=== PATIENT | female | born 1945 | race Caucasian/White ===

== ENCOUNTER 2017-04-16 14:22 | Inpatient (IN) | payer OTHER ==
[2017-04-16] VITALS: BP 162/80
[~2017-04-16] VITALS: Ht 160 cm; Wt 89.4 kg
[~2017-04-16 14:22] MED LIST: AMLO10TA2 PO; AMLO5TAB2 PO; ASPI-496 PO; ASPI-621 PO; ATOR-2 PO; CARV6.252 PO; CYCL5TAB PO; HYDR-3240 PO; HYDR2TAB29 PO; LINA5TAB PO; LISI40TA PO; LISI5TAB7 PO; METF850T2 PO; METH10TA6 PO; OMEP-110 PO; PRAS10TA4 PO; SIMV40TA3 PO; flexeril PO
[2017-04-16] MEDS ORDERED: NITROGLYCERIN SINGLE TAB 0.4 MG SL ONE (16:20)
[2017-04-16] MEDS ORDERED: ASPIRIN 81 MG TABLET CHEW ONE (16:20)
[2017-04-16] MEDS ORDERED: ASPIRIN 81 MG TABLET CHEW PO ONE (16:30)
[2017-04-16] MEDS ORDERED: SODIUM CHLORIDE FLUSH 10ML SYR IVF ONE (16:30)
[2017-04-16] MEDS ORDERED: NITROGLYCERIN SINGLE TAB 0.4 MG SL PRN (16:30)
[2017-04-16 16:32] LABS: HEMATOCRIT 43.2 % (34.6-47.8); HEMOGLOBIN 14.1 g/dL (11.7-16.4); WHITE BLOOD COUNT 8.6 x10^3/uL (3.4-10)
[2017-04-16 16:45] LABS: BLOOD UREA NITROGEN 34 mg/dL (7-18)
[2017-04-16 16:51] LABS: ASPARTATE AMINO TRANSFERASE 33 U/L (15-37)
[2017-04-16 16:59] LABS: IS PT STATUS REG ER OR PRE ER? YES
[2017-04-16] MEDS ORDERED: NITROGLYCERIN OINT 2%, 1GM TP ONE ×2 (18:00→18:37)
[2017-04-16] MEDS ORDERED: POLYETHYLENE GLYCOL 17 GM PACKET PO PRN (18:00)
[2017-04-16] MEDS ORDERED: PROMETHAZINE 25 MG/ML, 1ML IM PRN (18:00)
[2017-04-16] MEDS ORDERED: HYDROcodone/APAP 5/325 TABLET PO PRN (18:00)
[2017-04-16] MEDS ORDERED: INSULIN ASPART 100 UNITS/ML, PEN SQ-INSULIN SCH (18:00)
[2017-04-16] MEDS ORDERED: DEXTROSE 4 GM TAB.CHEW PO PRN (18:00)
[2017-04-16] MEDS ORDERED: ACETAMINOPHEN 325 MG TABLET PO PRN (18:00)
[2017-04-16] MEDS ORDERED: ONDANSETRON 2MG/ML, 2ML IVPush PRN (18:00)
[2017-04-16] MEDS ORDERED: DEXTROSE 50%, 50ML SYRINGE IVPush PRN (18:00)
[2017-04-16] MEDS ORDERED: GLUCAGON 1 MG IM PRN (18:00)
[2017-04-16] MEDS ORDERED: METHOCARBAMOL 500 MG TABLET PO PRN (18:00)
[2017-04-16] MEDS ORDERED: BISACODYL 10 MG SUPP PR PRN (18:00)
[2017-04-16] MEDS ORDERED: ZOLPIDEM 5MG TABLET PO PRN (18:00)
[2017-04-16] MEDS ORDERED: DOCUSATE 100 MG CAPSULE PO PRN (18:00)
[2017-04-16] MEDS ORDERED: ENOXAPARIN 40 MG/0.4 ML SQ SCH (21:00)
[2017-04-16] MEDS: ATORVASTATIN 80 MG TABLET PO SCH (21:59)
[2017-04-16] MEDS: CARVEDILOL 6.25 MG TABLET PO SCH (22:38)
[2017-04-16] MEDS: NITROGLYCERIN 0.4 MG BOTTLE (25 TABS) SL PRN (22:39)
[2017-04-16] MEDS: SODIUM CHLORIDE 0.9% 1,000 ML IV SCH (23:08)
[2017-04-16] MEDS: SODIUM CHLORIDE FLUSH 10ML SYR IVF SCH ×2 (23:09)
[2017-04-16 23:29] LABS: IS PT STATUS REG ER OR PRE ER? NO
[2017-04-16 23:30] VITALS: BP 170/85
[2017-04-16] MEDS: PRASUGREL 10 MG TABLET PO SCH (23:39)
[2017-04-16 23:40] VITALS: BP 153/74
[2017-04-17] MEDS ORDERED: ATROPINE SYRINGE 0.1 MG/ML, 10ML ONE
[2017-04-17] MEDS ORDERED: HEPARIN 5,000 UNITS/ML, 1ML IV ONE (00:30)
[2017-04-17] MEDS ORDERED: HEPARIN 25,000 UNITS/500ML PMX 500 ML IV PRN (00:30)
[2017-04-17] MEDS ORDERED: HEPARIN 5,000 UNITS/ML, 1ML IV PRN (00:30)
[2017-04-17 00:41] VITALS: BP 204/96
[2017-04-17 01:03] VITALS: BP 179/89
[2017-04-17] MEDS: NITROGLYCERIN 0.4 MG BOTTLE (25 TABS) SL PRN (01:03)
[2017-04-17 01:17] VITALS: BP 149/82
[2017-04-17 02:05] LABS: PATH.CAST-FLAG NOT PRESENT; SPERM-FLAG NOT PRESENT; SRC-FLAG NOT PRESENT; XTAL-FLAG NOT PRESENT; YLC-FLAG NOT PRESENT
[2017-04-17] MEDS: hydrALAzine 20 MG/ML, 1ML IV PRN (04:49)
[2017-04-17] MEDS ORDERED: NITROGLYCERIN/D5W PMX 250 ML IV PRN (05:00)
[2017-04-17] MEDS: CARVEDILOL 6.25 MG TABLET PO SCH ×3 (05:49→21:27)
[2017-04-17 06:04] LABS: BLOOD UREA NITROGEN 29 mg/dL (7-18)
[2017-04-17 06:11] LABS: IS PT STATUS REG ER OR PRE ER? NO
[2017-04-17] MEDS: INSULIN ASPART 100 UNITS/ML, PEN SQ-INSULIN SCH ×4 (07:00→21:54)
[2017-04-17] MEDS ORDERED: PRASUGREL 10 MG TABLET PO SCH (09:00)
[2017-04-17] MEDS ORDERED: OMEPRAZOLE 20 MG CAPSULE.DR PO SCH (09:00)
[2017-04-17] MEDS: ASPIRIN 81 MG TABLET EC PO SCH (10:34)
[2017-04-17] MEDS: SODIUM CHLORIDE FLUSH 10ML SYR IVF SCH ×4 (10:35→21:53)
[2017-04-17] MEDS ORDERED: VERAPAMIL 2.5 MG/ML, 2ML ONE (12:49)
[2017-04-17] MEDS ORDERED: FENTANYL PF 100 MCG/2ML ONE (12:49)
[2017-04-17] MEDS ORDERED: MIDAZOLAM 1 MG/ML, 5ML ONE ×3 (12:49→17:03)
[2017-04-17] MEDS ORDERED: HEPARIN 1,000 UNITS/ML, 10ML ONE (12:50)
[2017-04-17] MEDS ORDERED: BIVALIRUDIN 250 MG ONE ×2 (12:50→15:22)
[2017-04-17] MEDS ORDERED: LIDOCAINE 2%, 20ML ONE (12:50)
[2017-04-17] MEDS: SODIUM CHLORIDE 0.9% 1,000 ML IV SCH (13:15)
[2017-04-17] MEDS ORDERED: PRASUGREL 10 MG TABLET ONE (14:57)
[2017-04-17] MEDS ORDERED: PHENYLEPHRINE 10 MG/ML ONE ×2 (15:07→15:40)
[2017-04-17] MEDS ORDERED: EPINEPHRINE 2 MG in SODIUM CHLORIDE 0.9% 248 ML IV PRN (15:30)
[2017-04-17] MEDS ORDERED: PROPOFOL 10 MG/ML, 100ML IV ONE (15:40)
[2017-04-17] MEDS ORDERED: VECURONIUM 10 MG ONE (15:40)
[2017-04-17] MEDS ORDERED: VASOPRESSIN 20 UNIT/ML, 1ML ONE (15:40)
[2017-04-17] MEDS ORDERED: DEXTROSE 5%, 250ML ONE (15:40)
[2017-04-17] MEDS ORDERED: CODE BLUE RESPONSE XX ONE (15:40)
[2017-04-17] MEDS ORDERED: CALCIUM CHLORIDE 13.6 MEQ/10 ML ONE (15:40)
[2017-04-17] MEDS ORDERED: SODIUM CHLORIDE 0.9%, 250ML ONE (15:40)
[2017-04-17] MEDS ORDERED: SODIUM BICARB 8.4%, 50ML SYRINGE ONE (15:40)
[2017-04-17] MEDS ORDERED: EPINEPHRINE SYRINGE 0.1 MG/ML, 10ML ONE ×2 (15:43)
[2017-04-17] MEDS ORDERED: EPTIFIBATIDE 100 ML IV ONE (15:58)
[2017-04-17] MEDS ORDERED: EPTIFIBATIDE 20 MG/10 ML ONE (15:58)
[2017-04-17] MEDS ORDERED: PROPOFOL 100 ML IV PRN (16:00)
[2017-04-17] MEDS ORDERED: DOPAMINE/D5W PMX 250 ML ONE (16:17)
[2017-04-17 16:58] LABS: HEMATOCRIT 37.8 % (34.6-47.8); HEMOGLOBIN 12.3 g/dL (11.7-16.4); WHITE BLOOD COUNT 12.9 x10^3/uL (3.4-10)
[2017-04-17 17:10] LABS: BLOOD UREA NITROGEN 23 mg/dL (7-18)
[2017-04-17 17:15] LABS: ASPARTATE AMINO TRANSFERASE 20 U/L (15-37)
[2017-04-17 17:18] LABS: DIFF TOTAL CELLS COUNTED 100 CELL DIFF
[2017-04-17 17:21] LABS: VERIFY COUNTS? YES
[2017-04-17 17:22] LABS: POLYCHROMASIA 1+
[2017-04-17] MEDS ORDERED: SODIUM CHLORIDE 0.9% 1,000 ML IV SCH (18:19)
[2017-04-17] MEDS ORDERED: VASOPRESSIN 100 UNIT in SODIUM CHLORIDE 0.9% 495 ML IV PRN (18:30)
[2017-04-17 18:51] LABS: ABG COLLECTION SITE ARTERIAL LINE
[2017-04-17] MEDS: PHENYLEPHRINE 20 MG in SODIUM CHLORIDE 0.9% 248 ML IV PRN ×2 (18:54→23:27)
[2017-04-17] MEDS: PRASUGREL 10 MG TABLET PO SCH (21:44)
[2017-04-17] MEDS: ATORVASTATIN 80 MG TABLET PO SCH (21:53)
[2017-04-18] MEDS ORDERED: SODIUM BICARB 8.4%, 50ML SYRINGE IVPush ONE (00:05)
[2017-04-18] MEDS ORDERED: SODIUM CHLORIDE 0.9% 1,000ML IVBOLUS ONE (01:00)
[2017-04-18] MEDS: SODIUM ACETATE 150 MEQ in DEXTROSE 5% 1,000 ML IV SCH ×2 (01:47→09:00)
[2017-04-18] MEDS: CARVEDILOL 6.25 MG TABLET PO SCH ×3 (07:00→21:20)
[2017-04-18 08:16] LABS: BLOOD UREA NITROGEN 28 mg/dL (7-18)
[2017-04-18] MEDS: ASPIRIN 81 MG TABLET EC PO SCH (09:00)
[2017-04-18] MEDS ORDERED: MIDAZOLAM 1 MG/ML, 5ML IV PRN (09:00)
[2017-04-18] MEDS ORDERED: FAMOTIDINE 20 MG/2 ML IV SCH (09:00)
[2017-04-18] MEDS ORDERED: PHENYLEPHRINE 20 MG in SODIUM CHLORIDE 0.9% 248 ML IV PRN (09:00)
[2017-04-18] MEDS ORDERED: LIDOCAINE-MPF 1%, 2ML ENDO PRN (09:00)
[2017-04-18] MEDS: SODIUM CHLORIDE FLUSH 10ML SYR IVF SCH ×4 (09:00→21:20)
[2017-04-18] MEDS: INSULIN ASPART 100 UNITS/ML, PEN SQ-INSULIN SCH ×3 (09:02→22:53)
[2017-04-18] MEDS: ALBUTEROL/IPRATROPIUM 2.5MG/0.5MG, 3 ML INLINE SCH ×4 (09:18→20:03)
[2017-04-18] MEDS ORDERED: LACTULOSE 20 GM/30 ML UDC PO PRN (09:30)
[2017-04-18] MEDS ORDERED: INSULIN REGULAR, HUMAN 100 UNIT/ML 3ML VIAL LOW DOSE SS SQ-INSULIN SCH (09:30)
[2017-04-18] MEDS ORDERED: FENTANYL PF 100 MCG/2ML IV PRN (09:30)
[2017-04-18] MEDS ORDERED: VASOPRESSIN 100 UNIT in SODIUM CHLORIDE 0.9% 495 ML IV PRN (09:30)
[2017-04-18] MEDS ORDERED: EPINEPHRINE 2 MG in SODIUM CHLORIDE 0.9% 248 ML IV PRN (09:30)
[2017-04-18 09:45] LABS: HEMATOCRIT 33.4 % (34.6-47.8); HEMOGLOBIN 10.9 g/dL (11.7-16.4)
[2017-04-18] MEDS: FAMOTIDINE 20 MG/2 ML IV SCH (10:26)
[2017-04-18 10:45] LABS: OCCBLD OBC PASS
[2017-04-18 10:54] LABS: ASPARTATE AMINO TRANSFERASE 405 U/L (15-37); BLOOD UREA NITROGEN 32 mg/dL (7-18)
[2017-04-18] MEDS: PIPERACILLIN/TAZO/PMX 3.375GM 50 ML IV SCH ×3 (12:14→23:53)
[2017-04-18] MEDS: PROPOFOL 100 ML IV SCH ×2 (12:31→23:58)
[2017-04-18 14:37] LABS: HEMOGLOBIN 10.4 g/dL (11.7-16.4); WHITE BLOOD COUNT 22.7 x10^3/uL (3.4-10)
[2017-04-18 14:39] LABS: DIFF TOTAL CELLS COUNTED 100 CELL DIFF
[2017-04-18 14:40] LABS: VERIFY COUNTS? YES
[2017-04-18] MEDS: ASPIRIN 81 MG TABLET CHEW NG SCH (15:21)
[2017-04-18] MEDS: PRASUGREL 10 MG TABLET PO SCH (15:21)
[2017-04-18] MEDS ORDERED: INSULIN ASPART 100 UNITS/ML, PEN SQ-INSULIN SCH ×2 (16:00→19:00)
[2017-04-18 16:42] LABS: ABG COLLECTION SITE ARTERIAL LINE
[2017-04-18 16:45] LABS: HEMATOCRIT 30.2 % (34.6-47.8)
[2017-04-18] MEDS ORDERED: BISACODYL 10 MG SUPP PR PRN (18:00)
[2017-04-18] MEDS: morphine SULFATE 10 MG/ML, 1ML IVPush PRN (19:01)
[2017-04-18] MEDS ORDERED: SENNOSIDES 8.8 MG/5 ML ORAL SOL NG PRN (21:00)
[2017-04-18] MEDS ORDERED: SENNA/DOCUSATE TABLET PO PRN (21:00)
[2017-04-18] MEDS: ATORVASTATIN 80 MG TABLET PO SCH (21:20)
[2017-04-19] MEDS: SODIUM CHLORIDE 0.9% 1,000 ML IV SCH ×4 (00:12→21:57)
[2017-04-19] MEDS: ALBUTEROL/IPRATROPIUM 2.5MG/0.5MG, 3 ML INLINE SCH ×6 (01:00→21:00)
[2017-04-19] MEDS: INSULIN ASPART 100 UNITS/ML, PEN SQ-INSULIN SCH ×5 (04:13→21:58)
[2017-04-19 04:17] LABS: ABG COLLECTION SITE NOT DOCUMENTED
[2017-04-19 04:25] LABS: HEMATOCRIT 27.6 % (34.6-47.8); HEMOGLOBIN 9.1 g/dL (11.7-16.4); WHITE BLOOD COUNT 15.5 x10^3/uL (3.4-10)
[2017-04-19 04:29] LABS: BLOOD UREA NITROGEN 46 mg/dL (7-18)
[2017-04-19 04:34] LABS: ASPARTATE AMINO TRANSFERASE 531 U/L (15-37)
[2017-04-19 05:05] LABS: DIFF TOTAL CELLS COUNTED 100 CELL DIFF
[2017-04-19 05:07] LABS: ANISOCYTOSIS 1+; POLYCHROMASIA 1+; VERIFY COUNTS? YES
[2017-04-19] MEDS: CARVEDILOL 6.25 MG TABLET PO SCH ×3 (05:23→21:58)
[2017-04-19] MEDS: PIPERACILLIN/TAZO/PMX 3.375GM 50 ML IV SCH ×3 (05:58→18:39)
[2017-04-19] MEDS: SODIUM CHLORIDE FLUSH 10ML SYR IVF SCH ×2 (07:48→21:57)
[2017-04-19] MEDS: FAMOTIDINE 20 MG/2 ML IV SCH (07:51)
[2017-04-19] MEDS: ASPIRIN 81 MG TABLET CHEW NG SCH (07:51)
[2017-04-19] MEDS ORDERED: MAGNESIUM SULFATE PMX 2GM/50ML 50 ML IVPB ONE (09:00)
[2017-04-19] MEDS ORDERED: POTASSIUM CHLORIDE 20 MEQ TAB.ER.PRT NG ONE (09:00)
[2017-04-19] MEDS: PROPOFOL 100 ML IV SCH ×2 (09:06→16:26)
[2017-04-19] MEDS: morphine SULFATE 10 MG/ML, 1ML IVPush PRN (17:16)
[2017-04-19] MEDS: ATORVASTATIN 80 MG TABLET PO SCH (21:57)
[2017-04-19] MEDS: PRASUGREL 10 MG TABLET PO SCH (21:58)
[2017-04-20] VITALS (8 sets, daily range): BP systolic 91–125; BP diastolic 41–56
[2017-04-20] MEDS: ALBUTEROL/IPRATROPIUM 2.5MG/0.5MG, 3 ML INLINE SCH ×7 (00:02→22:02)
[2017-04-20] MEDS: PIPERACILLIN/TAZO/PMX 3.375GM 50 ML IV SCH ×4 (00:05→19:18)
[2017-04-20] MEDS: PROPOFOL 100 ML IV SCH ×5 (00:05→22:13)
[2017-04-20] MEDS: INSULIN ASPART 100 UNITS/ML, PEN SQ-INSULIN SCH ×4 (03:10→20:48)
[2017-04-20] MEDS: SODIUM CHLORIDE 0.9% 1,000 ML IV SCH (03:33)
[2017-04-20 04:23] LABS: ABG COLLECTION SITE LEFT RADIAL; COLLATERAL CIRCULATION TESTING NORMAL
[2017-04-20 04:38] LABS: BLOOD UREA NITROGEN 40 mg/dL (7-18)
[2017-04-20 05:56] LABS: HEMATOCRIT 19.9 % (34.6-47.8); HEMOGLOBIN 6.8 g/dL (11.7-16.4)
[2017-04-20] MEDS ORDERED: POTASSIUM CHLORIDE PMX 100 ML IV ONE ×2 (06:30→20:00)
[2017-04-20] MEDS: KSCALE TO 4.0 IV SCH ×3 (06:30→20:52)
[2017-04-20] MEDS: SODIUM CHLORIDE 0.45% 1,000 ML IV SCH ×2 (06:54→22:10)
[2017-04-20] MEDS: morphine SULFATE 10 MG/ML, 1ML IVPush PRN (07:23)
[2017-04-20] MEDS: SODIUM CHLORIDE FLUSH 10ML SYR IVF SCH ×3 (09:42→20:49)
[2017-04-20] MEDS: CARVEDILOL 6.25 MG TABLET PO SCH ×3 (09:55→22:10)
[2017-04-20] MEDS: ASPIRIN 81 MG TABLET CHEW NG SCH (09:55)
[2017-04-20] MEDS: FAMOTIDINE 20 MG/2 ML IV SCH (09:55)
[2017-04-20 13:12] LABS: HIT LOT CART23835/KIT23844
[2017-04-20 14:39] LABS: HEMOGLOBIN 8.3 g/dL (11.7-16.4)
[2017-04-20 14:41] LABS: HIT OBC PASS; HIT RESULT NEGATIVE (NEGATIVE)
[2017-04-20] MEDS ORDERED: POTASSIUM CHLORIDE 30 MEQ in SODIUM CHLORIDE 0.9% 100 ML IV ONE (15:00)
[2017-04-20 17:36] LABS: HEMATOCRIT 24.7 % (34.6-47.8); HEMOGLOBIN 8.3 g/dL (11.7-16.4)
[2017-04-20] MEDS: PRASUGREL 10 MG TABLET PO SCH (20:21)
[2017-04-20] MEDS: ATORVASTATIN 80 MG TABLET PO SCH (20:48)
[2017-04-21] MEDS: PIPERACILLIN/TAZO/PMX 3.375GM 50 ML IV SCH ×4 (00:16→19:55)
[2017-04-21] MEDS: ALBUTEROL/IPRATROPIUM 2.5MG/0.5MG, 3 ML INLINE SCH ×6 (02:11→21:46)
[2017-04-21] MEDS: INSULIN ASPART 100 UNITS/ML, PEN SQ-INSULIN SCH ×4 (03:01→20:10)
[2017-04-21] MEDS: PROPOFOL 100 ML IV SCH ×5 (03:02→23:46)
[2017-04-21 03:16] LABS: BLOOD UREA NITROGEN 35 mg/dL (7-18)
[2017-04-21 03:25] LABS: HEMATOCRIT 24.4 % (34.6-47.8); HEMOGLOBIN 7.9 g/dL (11.7-16.4); WHITE BLOOD COUNT 8.8 x10^3/uL (3.4-10)
[2017-04-21] MEDS ORDERED: POTASSIUM CHLORIDE PMX 100 ML IV ONE ×4 (03:30→23:30)
[2017-04-21] MEDS: KSCALE TO 4.0 IV SCH ×4 (03:39→21:00)
[2017-04-21 04:26] LABS: ABG COLLECTION SITE RIGHT BRACHIAL
[2017-04-21] MEDS: CARVEDILOL 6.25 MG TABLET PO SCH ×3 (06:18→19:58)
[2017-04-21] MEDS: SODIUM CHLORIDE 0.45% 1,000 ML IV SCH (08:08)
[2017-04-21] MEDS ORDERED: FUROSEMIDE 40 MG/4 ML IV ONE (09:00)
[2017-04-21] MEDS: ASPIRIN 81 MG TABLET CHEW NG SCH (09:00)
[2017-04-21] MEDS: FAMOTIDINE 20 MG/2 ML IV SCH (09:35)
[2017-04-21] MEDS: SODIUM CHLORIDE FLUSH 10ML SYR IVF SCH ×2 (09:35→19:57)
[2017-04-21] MEDS: PRASUGREL 10 MG TABLET PO SCH (19:57)
[2017-04-21] MEDS: ATORVASTATIN 80 MG TABLET PO SCH (19:57)
[2017-04-21] MEDS: morphine SULFATE 10 MG/ML, 1ML IVPush PRN (20:07)
[2017-04-22] MEDS: PIPERACILLIN/TAZO/PMX 3.375GM 50 ML IV SCH ×4 (00:08→18:15)
[2017-04-22] MEDS: ALBUTEROL/IPRATROPIUM 2.5MG/0.5MG, 3 ML INLINE SCH ×2 (02:00→07:20)
[2017-04-22] MEDS: INSULIN ASPART 100 UNITS/ML, PEN SQ-INSULIN SCH ×4 (03:00→21:00)
[2017-04-22] MEDS: KSCALE TO 4.0 IV SCH (03:00)
[2017-04-22 04:22] LABS: ABG COLLECTION SITE RIGHT BRACHIAL
[2017-04-22] MEDS: PROPOFOL 100 ML IV SCH (04:26)
[2017-04-22 05:02] LABS: HEMATOCRIT 23.2 % (34.6-47.8); HEMOGLOBIN 7.7 g/dL (11.7-16.4); WHITE BLOOD COUNT 8.4 x10^3/uL (3.4-10)
[2017-04-22 05:05] LABS: BLOOD UREA NITROGEN 32 mg/dL (7-18)
[2017-04-22] MEDS ORDERED: POTASSIUM CHLORIDE PMX 100 ML IV ONE (06:00)
[2017-04-22] MEDS ORDERED: MAGNESIUM SULFATE PMX 4GM/100M 100 ML IV ONE (07:00)
[2017-04-22] MEDS: CARVEDILOL 6.25 MG TABLET PO SCH ×3 (08:16→22:35)
[2017-04-22] MEDS: ASPIRIN 81 MG TABLET CHEW NG SCH (08:18)
[2017-04-22] MEDS: FAMOTIDINE 20 MG/2 ML IV SCH (08:18)
[2017-04-22] MEDS ORDERED: ALBUTEROL/IPRATROPIUM 2.5MG/0.5MG, 3 ML NPPB PRN ×2 (10:00→17:00)
[2017-04-22] MEDS ORDERED: FUROSEMIDE 100 MG/10 ML IV ONE (10:00)
[2017-04-22] MEDS: SODIUM CHLORIDE FLUSH 10ML SYR IVF SCH ×2 (10:01→21:00)
[2017-04-22] MEDS: FUROSEMIDE 20 MG/2 ML IV SCH (10:59)
[2017-04-22] MEDS: hydrALAzine 20 MG/ML, 1ML IV PRN (12:12)
[2017-04-22] MEDS ORDERED: GLUCAGON 1 MG IM PRN (17:00)
[2017-04-22] MEDS ORDERED: PROMETHAZINE 25 MG/ML, 1ML IM PRN (17:00)
[2017-04-22] MEDS ORDERED: LACTULOSE 20 GM/30 ML UDC PO PRN (17:00)
[2017-04-22] MEDS ORDERED: DEXTROSE 4 GM TAB.CHEW PO PRN (17:00)
[2017-04-22] MEDS ORDERED: ONDANSETRON 2MG/ML, 2ML IVPush PRN (17:00)
[2017-04-22] MEDS ORDERED: NITROGLYCERIN 0.4 MG BOTTLE (25 TABS) SL PRN (17:00)
[2017-04-22] MEDS ORDERED: DEXTROSE 50%, 50ML SYRINGE IVPush PRN (17:00)
[2017-04-22] MEDS ORDERED: ZOLPIDEM 5MG TABLET PO PRN (17:00)
[2017-04-22] MEDS ORDERED: BISACODYL 10 MG SUPP PR PRN (17:00)
[2017-04-22] MEDS ORDERED: POLYETHYLENE GLYCOL 17 GM PACKET PO PRN (17:00)
[2017-04-22] MEDS ORDERED: ACETAMINOPHEN 325 MG TABLET PO PRN (17:00)
[2017-04-22] MEDS ORDERED: SENNA/DOCUSATE TABLET PO PRN (17:00)
[2017-04-22] MEDS: ATORVASTATIN 80 MG TABLET PO SCH (21:00)
[2017-04-22] MEDS: PRASUGREL 10 MG TABLET PO SCH (21:00)
[2017-04-23] MEDS: PIPERACILLIN/TAZO/PMX 3.375GM 50 ML IV SCH ×2 (00:21→06:11)
[2017-04-23] MEDS: INSULIN ASPART 100 UNITS/ML, PEN SQ-INSULIN SCH ×4 (03:00→21:00)
[2017-04-23 04:19] LABS: ABG COLLECTION SITE LEFT RADIAL; COLLATERAL CIRCULATION TESTING NORMAL
[2017-04-23 04:56] LABS: HEMOGLOBIN 8.7 g/dL (11.7-16.4); WHITE BLOOD COUNT 8.6 x10^3/uL (3.4-10)
[2017-04-23 05:07] LABS: BLOOD UREA NITROGEN 30 mg/dL (7-18)
[2017-04-23] MEDS: CARVEDILOL 6.25 MG TABLET PO SCH ×3 (06:28→21:27)
[2017-04-23] MEDS: FAMOTIDINE 20 MG/2 ML IV SCH (09:39)
[2017-04-23] MEDS: FUROSEMIDE 20 MG/2 ML IV SCH (09:39)
[2017-04-23] MEDS: SODIUM CHLORIDE FLUSH 10ML SYR IVF SCH ×2 (09:39→21:24)
[2017-04-23] MEDS: ASPIRIN 81 MG TABLET CHEW NG SCH (10:07)
[2017-04-23] MEDS: LISINOPRIL 5 MG TABLET PO SCH (14:30)
[2017-04-23 16:58] VITALS: BP 187/73
[2017-04-23] MEDS: hydrALAzine 20 MG/ML, 1ML IV PRN (18:07)
[2017-04-23] MEDS: morphine SULFATE 10 MG/ML, 1ML IVPush PRN ×2 (18:07→18:27)
[2017-04-23 18:25] VITALS: BP 139/64
[2017-04-23 19:50] VITALS: BP 136/66
[2017-04-23] MEDS ORDERED: DEXTROSE 4 GM TAB.CHEW PO PRN (20:00)
[2017-04-23] MEDS ORDERED: GLUCAGON 1 MG IM PRN (20:00)
[2017-04-23] MEDS ORDERED: DEXTROSE 50%, 50ML SYRINGE IVPush PRN (20:00)
[2017-04-23] MEDS: ATORVASTATIN 80 MG TABLET PO SCH (21:24)
[2017-04-23] MEDS: PRASUGREL 10 MG TABLET PO SCH (21:24)
[2017-04-23 21:26] VITALS: BP 138/68
[2017-04-24] MEDS: morphine SULFATE 10 MG/ML, 1ML IVPush PRN (00:07)
[2017-04-24 01:10] VITALS: BP 107/62
[2017-04-24 04:47] LABS: BLOOD UREA NITROGEN 30 mg/dL (7-18)
[2017-04-24 04:49] LABS: HEMOGLOBIN 8.6 g/dL (11.7-16.4); WHITE BLOOD COUNT 7.8 x10^3/uL (3.4-10)
[2017-04-24] MEDS: INSULIN ASPART 100 UNITS/ML, PEN SQ-INSULIN SCH ×4 (07:00→21:00)
[2017-04-24] MEDS: CARVEDILOL 6.25 MG TABLET PO SCH ×3 (07:26→21:43)
[2017-04-24] MEDS ORDERED: POTASSIUM CHLORIDE 20 MEQ TAB.ER.PRT PO ONE ×2 (07:30→10:00)
[2017-04-24 07:35] VITALS: BP 123/67
[2017-04-24] MEDS: LISINOPRIL 5 MG TABLET PO SCH (08:46)
[2017-04-24] MEDS: ASPIRIN 81 MG TABLET CHEW NG SCH (08:46)
[2017-04-24] MEDS: SODIUM CHLORIDE FLUSH 10ML SYR IVF SCH ×2 (08:47→21:42)
[2017-04-24] MEDS ORDERED: FUROSEMIDE 20 MG/2 ML IV SCH (09:00)
[2017-04-24 14:08] VITALS: BP 162/75
[2017-04-24 18:52] VITALS: BP 180/70
[2017-04-24 19:20] VITALS: BP 173/79
[2017-04-24] MEDS: PRASUGREL 10 MG TABLET PO SCH (21:42)
[2017-04-24] MEDS: ATORVASTATIN 80 MG TABLET PO SCH (21:43)
[2017-04-24] MEDS: hydrALAzine 20 MG/ML, 1ML IV PRN (21:50)
[2017-04-24 22:39] VITALS: BP 157/68
[2017-04-25] VITALS (7 sets, daily range): BP systolic 112–187; BP diastolic 63–79
[2017-04-25] MEDS: HYDROcodone/APAP 5/325 TABLET PO PRN ×2 (01:03→20:29)
[2017-04-25 05:19] LABS: HEMATOCRIT 26.7 % (34.6-47.8); HEMOGLOBIN 9.1 g/dL (11.7-16.4); WHITE BLOOD COUNT 9.8 x10^3/uL (3.4-10)
[2017-04-25 05:24] LABS: BLOOD UREA NITROGEN 27 mg/dL (7-18)
[2017-04-25] MEDS: CARVEDILOL 6.25 MG TABLET PO SCH ×3 (05:45→20:28)
[2017-04-25] MEDS: INSULIN ASPART 100 UNITS/ML, PEN SQ-INSULIN SCH ×4 (07:00→20:39)
[2017-04-25] MEDS: ASPIRIN 81 MG TABLET CHEW NG SCH (07:56)
[2017-04-25] MEDS: LISINOPRIL 5 MG TABLET PO SCH (07:56)
[2017-04-25] MEDS: SODIUM CHLORIDE FLUSH 10ML SYR IVF SCH ×2 (07:56→20:27)
[2017-04-25] MEDS: POTASSIUM CHLORIDE 20 MEQ TAB.ER.PRT PO SCH ×4 (09:20→20:28)
[2017-04-25] MEDS: ATORVASTATIN 80 MG TABLET PO SCH (20:28)
[2017-04-25] MEDS: PRASUGREL 10 MG TABLET PO SCH (20:28)
[2017-04-25] MEDS: hydrALAzine 20 MG/ML, 1ML IV PRN (20:28)
[2017-04-26 02:17] VITALS: BP 150/70
[2017-04-26 05:16] LABS: HEMATOCRIT 28.6 % (34.6-47.8); HEMOGLOBIN 9.7 g/dL (11.7-16.4); WHITE BLOOD COUNT 10.2 x10^3/uL (3.4-10)
[2017-04-26 05:33] LABS: BLOOD UREA NITROGEN 22 mg/dL (7-18)
[2017-04-26] MEDS: POTASSIUM CHLORIDE 20 MEQ TAB.ER.PRT PO SCH ×4 (06:01→20:24)
[2017-04-26] MEDS: CARVEDILOL 6.25 MG TABLET PO SCH (06:01)
[2017-04-26] MEDS: INSULIN ASPART 100 UNITS/ML, PEN SQ-INSULIN SCH ×4 (06:01→20:27)
[2017-04-26] MEDS: LISINOPRIL 5 MG TABLET PO SCH (09:00)
[2017-04-26 09:40] VITALS: BP 144/74
[2017-04-26] MEDS: ASPIRIN 81 MG TABLET CHEW NG SCH (10:29)
[2017-04-26] MEDS: SODIUM CHLORIDE FLUSH 10ML SYR IVF SCH ×2 (10:33→20:22)
[2017-04-26] MEDS ORDERED: CARVEDILOL 12.5 MG TABLET PO SCH (14:00)
[2017-04-26] MEDS: LISINOPRIL 10 MG TABLET PO SCH (16:34)
[2017-04-26 16:45] VITALS: BP 180/75
[2017-04-26 20:16] VITALS: BP 179/78
[2017-04-26] MEDS: CARVEDILOL 12.5 MG TABLET PO SCH (20:23)
[2017-04-26] MEDS: PRASUGREL 10 MG TABLET PO SCH (20:24)
[2017-04-26] MEDS: ATORVASTATIN 80 MG TABLET PO SCH (20:24)
[2017-04-27 00:46] VITALS: BP 172/73
[2017-04-27] MEDS: POTASSIUM CHLORIDE 20 MEQ TAB.ER.PRT PO SCH ×3 (05:17→16:00)
[2017-04-27] MEDS: hydrALAzine 20 MG/ML, 1ML IV PRN (05:17)
[2017-04-27 05:44] LABS: BLOOD UREA NITROGEN 22 mg/dL (7-18)
[2017-04-27 05:48] LABS: HEMATOCRIT 30.8 % (34.6-47.8); HEMOGLOBIN 10.4 g/dL (11.7-16.4); WHITE BLOOD COUNT 10.3 x10^3/uL (3.4-10)
[2017-04-27] MEDS: INSULIN ASPART 100 UNITS/ML, PEN SQ-INSULIN SCH ×3 (07:00→16:00)
[2017-04-27] MEDS: ASPIRIN 81 MG TABLET CHEW NG SCH (07:59)
[2017-04-27] MEDS: SODIUM CHLORIDE FLUSH 10ML SYR IVF SCH (07:59)
[2017-04-27] MEDS: LISINOPRIL 10 MG TABLET PO SCH (07:59)
[2017-04-27] MEDS: CARVEDILOL 12.5 MG TABLET PO SCH (07:59)
[2017-04-27 08:02] VITALS: BP 170/63
[2017-04-27] MEDS ORDERED: LISINOPRIL 10 MG TABLET PO ONE (10:00)
[2017-04-27] MEDS ORDERED: HYDROCHLOROTHIAZIDE 25 MG TABLET PO SCH (10:00)
[2017-04-27] MEDS ORDERED: POTA20TA6 PO (13:16)
[2017-04-27] MEDS ORDERED: HYDR25TA6 PO (13:16)
[2017-04-27] MEDS ORDERED: HYDR-3240 PO (13:16)
[2017-04-27] MEDS ORDERED: LISI-170 PO (13:16)
[2017-04-27] MEDS ORDERED: METH500T7 PO (13:16)
[2017-04-27] MEDS ORDERED: SENN1TAB7 PO (13:16)
[2017-04-27 14:14] VITALS: BP 157/72
[2017-04-27] MEDS ORDERED: CARV12.543 PO (15:29)
[2017-04-27] MEDS ORDERED: LISINOPRIL 20 MG TABLET PO SCH (21:00)
== END 2017-04-27 18:38 | disposition home or self-care (01) | DRG 270 ==
LOC: ED 16:52 → EDIP 17:29 → 5SO 19:55 → CCU 04-17 03:32 → 5SO 04-23 16:16
PROVIDERS: ADMIT Hospitalist
PROC: 027135Z Dilation of Coronary Artery, Two Arteries with Two Drug-eluting Intraluminal Devices, Percutaneous Approach (ICD-10-PCS; principal; 2017-04-17)
PROC: 5A02210 Assistance with Cardiac Output using Balloon Pump, Continuous (ICD-10-PCS; 2017-04-17)
PROC: 03HY32Z Insertion of Monitoring Device into Upper Artery, Percutaneous Approach (ICD-10-PCS; 2017-04-17)
PROC: 0BH17EZ Insertion of Endotracheal Airway into Trachea, Via Natural or Artificial Opening (ICD-10-PCS; 2017-04-17)
PROC: 4A023N8 Measurement of Cardiac Sampling and Pressure, Bilateral, Percutaneous Approach (ICD-10-PCS; 2017-04-17)
PROC: 5A12012 Performance of Cardiac Output, Single, Manual (ICD-10-PCS; 2017-04-17)
PROC: B2111ZZ Fluoroscopy of Multiple Coronary Arteries using Low Osmolar Contrast (ICD-10-PCS; 2017-04-17)
PROC: B2151ZZ Fluoroscopy of Left Heart using Low Osmolar Contrast (ICD-10-PCS; 2017-04-17)
PROC: B246ZZ4 Ultrasonography of Right and Left Heart, Transesophageal (ICD-10-PCS; 2017-04-17)
PROC: 5A1955Z Respiratory Ventilation, Greater than 96 Consecutive Hours (ICD-10-PCS; 2017-04-17)
PROC: 0BH17EZ Insertion of Endotracheal Airway into Trachea, Via Natural or Artificial Opening (ICD-10-PCS; 2017-04-17)
PROC: 4A133B3 Monitoring of Arterial Pressure, Pulmonary, Percutaneous Approach (ICD-10-PCS; 2017-04-17)
PROC: 4A1239Z Monitoring of Cardiac Output, Percutaneous Approach (ICD-10-PCS; 2017-04-17)
PROC: 30233R1 Transfusion of Nonautologous Platelets into Peripheral Vein, Percutaneous Approach (ICD-10-PCS; 2017-04-20)
PROC: 30233N1 Transfusion of Nonautologous Red Blood Cells into Peripheral Vein, Percutaneous Approach (ICD-10-PCS; 2017-04-20)
DX: I21.3 ST elevation (STEMI) myocardial infarction of unspecified site (principal); N17.0 Acute kidney failure with tubular necrosis; J96.00 Acute respiratory failure, unspecified whether with hypoxia or hypercapnia; I46.9 Cardiac arrest, cause unspecified; E43 Unspecified severe protein-calorie malnutrition; J90 Pleural effusion, not elsewhere classified; D62 Acute posthemorrhagic anemia; E87.2 Acidosis; D69.6 Thrombocytopenia, unspecified; Z99.11 Dependence on respirator [ventilator] status; E87.0 Hyperosmolality and hypernatremia; K56.0 Paralytic ileus; J98.11 Atelectasis; I25.110 Atherosclerotic heart disease of native coronary artery with unstable angina pectoris; I65.29 Occlusion and stenosis of unspecified carotid artery; I12.9 Hypertensive chronic kidney disease with stage 1 through stage 4 chronic kidney disease, or unspecified chronic kidney disease; R07.9 Chest pain, unspecified; M54.2 Cervicalgia; N18.2 Chronic kidney disease, stage 2 (mild); E78.5 Hyperlipidemia, unspecified; Z68.34 Body mass index [BMI] 34.0-34.9, adult; E11.22 Type 2 diabetes mellitus with diabetic chronic kidney disease; E86.1 Hypovolemia; E87.6 Hypokalemia; E87.70 Fluid overload, unspecified; F17.200 Nicotine dependence, unspecified, uncomplicated; I34.0 Nonrheumatic mitral (valve) insufficiency; I72.0 Aneurysm of carotid artery; K21.9 Gastro-esophageal reflux disease without esophagitis; K76.9 Liver disease, unspecified; M48.06 Spinal stenosis, lumbar region; R13.10 Dysphagia, unspecified; S30.1XXA Contusion of abdominal wall, initial encounter; T50.1X5A Adverse effect of loop [high-ceiling] diuretics, initial encounter; Z79.82 Long term (current) use of aspirin; Z83.3 Family history of diabetes mellitus
CPT/HCPCS: 36415; 36600; 71010; 74176; 80048; 80053; 80061; 80069; 81001; 82040; 82272; 82570; 82803; 82962; 83690; 83735; 84100; 84132; 84145; 84300; 84478; 84484; 85014; 85018; 85025; 85520; 85610; 86022; 86850; 86900; 86923; 87070; 87081; 87086; 87205; 87324; 92978; 93005; 93308; 93312; 93321; 93325; 93460; 94002; 94003; 94150; 94640; 99156; 99157; 99291; C1725; C1753; C1760; C1894; C8929; C9600; J0461; J0583; J1265; J1644; J1650; J1815; J1940; J2250; J2543; J2704; J3010; J3480; J3490; J7060; J7070; J7620; C1769; C1874; C1887; J0171; J0360; J1327; J2270; J2370; J3475; J7030; J7040; J7050; P9016; P9035; Q9967; S0028

== ENCOUNTER → 2017-12-27 | Outpatient (CLI) | payer OTHER ==
[~2017-12-27] MED LIST changes: +CARV12.543 PO; +HYDR25TA6 PO; +LISI-170 PO; +LOPE2CAP PO; +MAGN400T26 PO; +METH500T7 PO; +OMNIPAQUE 350 MG/ML, 100ML BOTTLE ONE; +POTA20TA6 PO; +SENN1TAB7 PO
== END | disposition home or self-care (01) ==
LOC: RAD 13:52
DX: K62.4 Stenosis of anus and rectum (principal); I25.10 Atherosclerotic heart disease of native coronary artery without angina pectoris; Z90.49 Acquired absence of other specified parts of digestive tract
CPT/HCPCS: 71260; 74177; Q9967

== ENCOUNTER → 2018-01-17 | Outpatient (CLI) | payer OTHER ==
[~2018-01-17] MED LIST changes: -OMNIPAQUE 350 MG/ML, 100ML BOTTLE ONE
== END | disposition home or self-care (01) ==
LOC: ROC 08:38
PROVIDERS: ATTEND Radiology Radiation Oncology
DX: C20 Malignant neoplasm of rectum (principal); E11.9 Type 2 diabetes mellitus without complications; I10 Essential (primary) hypertension; I25.10 Atherosclerotic heart disease of native coronary artery without angina pectoris; K21.9 Gastro-esophageal reflux disease without esophagitis; E78.5 Hyperlipidemia, unspecified; Z95.5 Presence of coronary angioplasty implant and graft
CPT/HCPCS: 99214; G0463

== ENCOUNTER → 2018-01-24 | Outpatient (CLI) | payer OTHER | END | disposition home or self-care (01) | LOC: PETCFH 08:20 | PROVIDERS: ATTEND Radiology Radiation Oncology | DX: C19 Malignant neoplasm of rectosigmoid junction (principal) | CPT/HCPCS: 78815; A9552 ==

== ENCOUNTER → 2018-02-08 | Outpatient (CLI) | payer OTHER ==
[2018-02-08 09:46] LABS: ANION GAP 5 mmol/L (5-15); CALCIUM 9.4 mg/dL (8.5-10.1); CHLORIDE 105 mmol/L (98-107); CREATININE 1.45 mg/dL (0.55-1.02)
[2018-02-08 09:47] LABS: ALANINE AMINOTRANSFERASE 53 U/L (12-78); ALBUMIN 3.2 g/dL (3.4-5.0)
[2018-02-08 09:48] LABS: ALKALINE PHOSPHATASE 119 U/L (45-117); BILIRUBIN,TOTAL 0.4 mg/dL (0.2-1.0); TOTAL PROTEIN 7.5 g/dL (6.4-8.2)
== END ==
LOC: STAR 08:33
PROVIDERS: ATTEND Surgery
DX: Z01.818 Encounter for other preprocedural examination (principal)
CPT/HCPCS: 36415; 80053; 93005

== ENCOUNTER 2018-02-13 10:09 | Day surgery (SDC) | payer OTHER ==
[~2018-02-13] VITALS: Ht 160 cm; Wt 74.9 kg
[2018-02-13] MEDS ORDERED: LACTATED RINGERS 1,000 ML IV SCH (10:40)
[2018-02-13] MEDS ORDERED: OxyconTIN ER 10 MG TAB.ER PO ONE (11:00)
[2018-02-13] MEDS ORDERED: ACETAMINOPHEN 500 MG TABLET PO ONE (11:00)
[2018-02-13 11:08] VITALS: BP 132/75
[2018-02-13] MEDS ORDERED: ASPI-496 PO (11:08)
[2018-02-13] MEDS ORDERED: PROPOFOL 10 MG/ML, 20ML ONE (14:29)
[2018-02-13] MEDS ORDERED: MEPERIDINE/PF 25MG/0.5ML IVPush PRN (15:00)
[2018-02-13] MEDS ORDERED: FENTANYL PF 100 MCG/2ML IV PRN (15:00)
[2018-02-13] MEDS ORDERED: ONDANSETRON ODT 8 MG PO PRN (15:00)
[2018-02-13] MEDS ORDERED: HYDROcodone/APAP 7.5-325MG/15ML UDC PO PRN (15:00)
[2018-02-13] MEDS ORDERED: OXYcodone 5 MG/5 ML ORAL.SOL UDC PO PRN (15:00)
[2018-02-13] MEDS ORDERED: LABETALOL 5MG/ML, 20ML IV PRN (15:00)
[2018-02-13] MEDS ORDERED: hydrALAzine 20 MG/ML, 1ML IV PRN (15:00)
[2018-02-13] MEDS ORDERED: ALBUTEROL SULFATE 2.5 MG/3 ML NPPB PRN (15:00)
[2018-02-13] MEDS ORDERED: HYDROmorphone 1 MG/ML, 1ML IV PRN (15:00)
== END 2018-02-13 16:05 ==
LOC: OUT 10:09
PROVIDERS: ATTEND Surgery
DX: K63.3 Ulcer of intestine (principal); K62.89 Other specified diseases of anus and rectum; E11.22 Type 2 diabetes mellitus with diabetic chronic kidney disease; I12.9 Hypertensive chronic kidney disease with stage 1 through stage 4 chronic kidney disease, or unspecified chronic kidney disease; N18.2 Chronic kidney disease, stage 2 (mild); E78.2 Mixed hyperlipidemia; I25.10 Atherosclerotic heart disease of native coronary artery without angina pectoris; E11.9 Type 2 diabetes mellitus without complications; Z79.899 Other long term (current) drug therapy; Z88.1 Allergy status to other antibiotic agents; Z85.038 Personal history of other malignant neoplasm of large intestine
CPT/HCPCS: 45331; 82962; 88305; J2704; J7120

== ENCOUNTER → 2018-02-21 | Outpatient (CLI) | payer OTHER ==
[~2018-02-21] MED LIST changes: +ACET325T14 PO; +IBUP200C8 PO; +OXYC-302 PO
== END | disposition home or self-care (01) ==
LOC: WOUND 07:49
PROVIDERS: ATTEND Internal Medicine Cardiovascular Disease
DX: Z43.3 Encounter for attention to colostomy (principal); E78.5 Hyperlipidemia, unspecified; I25.10 Atherosclerotic heart disease of native coronary artery without angina pectoris; E11.40 Type 2 diabetes mellitus with diabetic neuropathy, unspecified; E11.22 Type 2 diabetes mellitus with diabetic chronic kidney disease; I12.9 Hypertensive chronic kidney disease with stage 1 through stage 4 chronic kidney disease, or unspecified chronic kidney disease; N18.2 Chronic kidney disease, stage 2 (mild); E78.00 Pure hypercholesterolemia, unspecified; E78.2 Mixed hyperlipidemia; Z85.038 Personal history of other malignant neoplasm of large intestine; Z87.891 Personal history of nicotine dependence
CPT/HCPCS: 99203; 99213

== ENCOUNTER 2018-02-22 09:26 | Inpatient (IN) | payer OTHER ==
[2018-02-21 10:12] LABS: BASOPHILS # (AUTO) 0.04 x10^3/uL (0-0.1); BASOPHILS % (AUTO) 1 % (0-1); EOSINOPHILS # (AUTO) 0.07 x10^3/uL (0-0.4); EOSINOPHILS % (AUTO) 1 % (1-7); LYMPHOCYTES # (AUTO) 1.63 x10^3/uL (1-3.4); LYMPHOCYTES % (AUTO) 21 % (22-44); MD NO; MEAN CORPUSCULAR HGB CONC 32.5 g/dL (32.4-35.8); MEAN CORPUSCULAR VOLUME 83.3 fL (80-100); MEAN PLATELET VOLUME 8.6 fL (7.4-10.4); MONOCYTES # (AUTO) 0.49 x10^3/uL (0.2-0.8); MONOCYTES % (AUTO) 6 % (2-9); NEUTROPHILS # (AUTO) 5.56 x10^3/uL (1.8-6.8); NEUTROPHILS % (AUTO) 71 % (42-75); PLATELET COUNT 281 x10^3/uL (130-400); RED BLOOD COUNT 4.99 x10^6/uL (3.82-5.3); RED CELL DISTRIBUTION WIDTH 16.9 % (9.6-15.2)
[2018-02-21 10:23] LABS: ALANINE AMINOTRANSFERASE 52 U/L (12-78); ALBUMIN 3.3 g/dL (3.4-5.0); ANION GAP 11 mmol/L (5-15); CALCIUM 9.5 mg/dL (8.5-10.1); CHLORIDE 105 mmol/L (98-107); CREATININE 1.51 mg/dL (0.55-1.02)
[2018-02-21 10:25] LABS: ALKALINE PHOSPHATASE 130 U/L (45-117); BILIRUBIN,TOTAL 0.4 mg/dL (0.2-1.0); TOTAL PROTEIN 7.9 g/dL (6.4-8.2)
[~2018-02-22] VITALS: Ht 160 cm; Wt 80.3 kg
[~2018-02-22 09:26] MED LIST changes: -ACET325T14 PO; -IBUP200C8 PO; -OXYC-302 PO
[2018-02-22] MEDS ORDERED: LACTATED RINGERS 1,000 ML IV SCH (09:51)
[2018-02-22] MEDS ORDERED: GABAPENTIN 300 MG CAPSULE PO ONE (11:00)
[2018-02-22] MEDS ORDERED: ONDANSETRON ODT 8 MG PO ONE (11:00)
[2018-02-22] MEDS ORDERED: ACETAMINOPHEN 500 MG TABLET PO ONE (11:00)
[2018-02-22] MEDS ORDERED: MIDAZOLAM 1 MG/ML, 2ML ONE (11:20)
[2018-02-22] MEDS ORDERED: FENTANYL PF 250 MCG/5ML ONE (11:20)
[2018-02-22] MEDS ORDERED: LIDOCAINE-MPF 2% ,5ML ONE (11:21)
[2018-02-22] MEDS ORDERED: PROPOFOL 10 MG/ML, 20ML ONE (11:21)
[2018-02-22] MEDS ORDERED: BUPIVACAINE/PF 0.5% ONE (11:24)
[2018-02-22] MEDS ORDERED: PHENYLEPHRINE 10 MG/ML ONE (11:33)
[2018-02-22] MEDS ORDERED: EPHEDRINE 50 MG/ML, 1ML ONE (11:33)
[2018-02-22] MEDS ORDERED: CEFOTETAN 2 GM ONE (11:33)
[2018-02-22] MEDS ORDERED: ROCURONIUM 10 MG/ML,10ML ONE (11:33)
[2018-02-22] MEDS ORDERED: NEOSTIGMINE 1 MG/ML, 10ML ONE (11:33)
[2018-02-22] MEDS ORDERED: GLYCOPYRROLATE 0.2MG/1ML, 5ML ONE (11:33)
[2018-02-22] MEDS ORDERED: DEXAMETHASONE 4 MG/ML, 1ML ONE ×2 (11:50)
[2018-02-22] MEDS ORDERED: PROMETHAZINE 25 MG/ML, 1ML IV PRN (13:00)
[2018-02-22] MEDS ORDERED: OXYcodone 5 MG/5 ML ORAL.SOL UDC PO PRN (13:00)
[2018-02-22] MEDS ORDERED: HALOPERIDOL 5 MG/ML IV PRN (13:00)
[2018-02-22] MEDS ORDERED: LABETALOL 5MG/ML, 20ML IV PRN (13:00)
[2018-02-22] MEDS ORDERED: MEPERIDINE/PF 25MG/0.5ML IVPush PRN (13:00)
[2018-02-22] MEDS ORDERED: hydrALAzine 20 MG/ML, 1ML IV PRN (13:00)
[2018-02-22] MEDS ORDERED: HYDROmorphone 1 MG/ML, 1ML IV PRN (13:00)
[2018-02-22] MEDS ORDERED: FENTANYL PF 100 MCG/2ML ONE (14:01)
[2018-02-22] MEDS ORDERED: OXYcodone 5 MG/5 ML ORAL.SOL UDC ONE (14:01)
[2018-02-22] MEDS: FENTANYL PF 100 MCG/2ML IV PRN ×3 (14:03→14:38)
[2018-02-22] MEDS ORDERED: SCOPOLAMINE PATCH, 1.5MG PATCH.TD72 TD PRN (16:30)
[2018-02-22] MEDS ORDERED: HALOPERIDOL 5 MG/ML IVPush PRN (16:30)
[2018-02-22] MEDS ORDERED: DIPHENHYDRAMINE 25 MG CAPSULE PO PRN (16:30)
[2018-02-22] MEDS ORDERED: DIPHENHYDRAMINE 50 MG/ML, 1ML IVPush PRN (16:30)
[2018-02-22] MEDS ORDERED: LORazepam 1MG TABLET PO PRN (16:30)
[2018-02-22] MEDS ORDERED: HYDROmorphone 1 MG/ML, 1ML IVPush PRN (16:30)
[2018-02-22] MEDS ORDERED: ONDANSETRON 2MG/ML, 2ML IV PRN (16:30)
[2018-02-22] MEDS ORDERED: CALCIUM CARBONATE 500 MG TAB.CHEW PO PRN (16:30)
[2018-02-22] MEDS ORDERED: DEXAMETHASONE 4 MG/ML, 1ML IVPush PRN (16:30)
[2018-02-22] MEDS ORDERED: LORazepam 2 MG/ML, 1ML IVPush PRN (16:30)
[2018-02-22] MEDS ORDERED: OXYcodone IR 5MG TABLET PO PRN (16:30)
[2018-02-22] MEDS: ACETAMINOPHEN 500 MG TABLET PO SCH ×2 (16:53→22:45)
[2018-02-22] MEDS: D5%-0.45NACL+KCL 20MEQ 1,000 ML IV SCH (17:22)
[2018-02-22 19:34] VITALS: BP 110/60
[2018-02-22] MEDS: ATORVASTATIN 80 MG TABLET PO SCH (20:24)
[2018-02-22] MEDS: IBUPROFEN 800 MG TABLET PO SCH (20:24)
[2018-02-22] MEDS: INSULIN REGULAR, HUMAN 100 UNIT/ML 3ML VIAL LOW DOSE SS SQ-INSULIN SCH (20:26)
[2018-02-23 00:10] VITALS: BP 98/58
[2018-02-23 03:52] VITALS: BP 105/61
[2018-02-23] MEDS: ACETAMINOPHEN 500 MG TABLET PO SCH ×4 (04:57→23:11)
[2018-02-23] MEDS: D5%-0.45NACL+KCL 20MEQ 1,000 ML IV SCH ×2 (04:58→21:06)
[2018-02-23 05:35] LABS: ANION GAP 6 mmol/L (5-15); CALCIUM 8.9 mg/dL (8.5-10.1); CHLORIDE 106 mmol/L (98-107); CREATININE 1.77 mg/dL (0.55-1.02)
[2018-02-23 06:01] LABS: BASOPHILS # (AUTO) 0.01 x10^3/uL (0-0.1); BASOPHILS % (AUTO) 0 % (0-1); EOSINOPHILS % (AUTO) 0 % (1-7); LYMPHOCYTES # (AUTO) 0.75 x10^3/uL (1-3.4); LYMPHOCYTES % (AUTO) 6 % (22-44); MD NO; MEAN CORPUSCULAR HEMOGLOBIN 26.8 pg (27.0-34.8); MEAN CORPUSCULAR HGB CONC 31.9 g/dL (32.4-35.8); MEAN CORPUSCULAR VOLUME 83.9 fL (80-100); MEAN PLATELET VOLUME 9.1 fL (7.4-10.4); MONOCYTES # (AUTO) 0.66 x10^3/uL (0.2-0.8); MONOCYTES % (AUTO) 6 % (2-9); NEUTROPHILS # (AUTO) 10.34 x10^3/uL (1.8-6.8); NEUTROPHILS % (AUTO) 88 % (42-75); PLATELET COUNT 257 x10^3/uL (130-400); RED BLOOD COUNT 4.19 x10^6/uL (3.82-5.3); RED CELL DISTRIBUTION WIDTH 16.7 % (9.6-15.2)
[2018-02-23 07:19] VITALS: BP 94/54
[2018-02-23] MEDS: INSULIN REGULAR, HUMAN 100 UNIT/ML 3ML VIAL LOW DOSE SS SQ-INSULIN SCH ×4 (07:36→20:26)
[2018-02-23] MEDS: OMEPRAZOLE 20 MG CAPSULE.DR PO SCH (07:37)
[2018-02-23] MEDS: IBUPROFEN 800 MG TABLET PO SCH ×3 (09:02→20:13)
[2018-02-23] MEDS: HEPARIN 5,000 UNITS/ML, 1ML SQ SCH ×2 (11:13→20:14)
[2018-02-23 14:00] VITALS: BP 114/64
[2018-02-23 18:43] VITALS: BP 110/65
[2018-02-23] MEDS: ATORVASTATIN 80 MG TABLET PO SCH (20:13)
[2018-02-24 01:02] VITALS: BP 144/83
[2018-02-24] MEDS: ACETAMINOPHEN 500 MG TABLET PO SCH ×2 (05:11→10:52)
[2018-02-24] MEDS: HEPARIN 5,000 UNITS/ML, 1ML SQ SCH ×2 (05:11→12:53)
[2018-02-24 05:40] LABS: BASOPHILS # (AUTO) 0.04 x10^3/uL (0-0.1); BASOPHILS % (AUTO) 1 % (0-1); EOSINOPHILS # (AUTO) 0.07 x10^3/uL (0-0.4); EOSINOPHILS % (AUTO) 1 % (1-7); LYMPHOCYTES # (AUTO) 2.67 x10^3/uL (1-3.4); LYMPHOCYTES % (AUTO) 30 % (22-44); MD NO; MEAN CORPUSCULAR HEMOGLOBIN 26.5 pg (27.0-34.8); MEAN CORPUSCULAR HGB CONC 32.1 g/dL (32.4-35.8); MEAN CORPUSCULAR VOLUME 82.6 fL (80-100); MEAN PLATELET VOLUME 9.5 fL (7.4-10.4); MONOCYTES # (AUTO) 0.81 x10^3/uL (0.2-0.8); MONOCYTES % (AUTO) 9 % (2-9); NEUTROPHILS % (AUTO) 60 % (42-75); PLATELET COUNT 230 x10^3/uL (130-400); RED BLOOD COUNT 4.11 x10^6/uL (3.82-5.3); RED CELL DISTRIBUTION WIDTH 16.9 % (9.6-15.2)
[2018-02-24 05:45] LABS: ANION GAP 7 mmol/L (5-15); CALCIUM 8.8 mg/dL (8.5-10.1); CHLORIDE 107 mmol/L (98-107)
[2018-02-24 05:46] LABS: CREATININE 1.74 mg/dL (0.55-1.02)
[2018-02-24] MEDS: INSULIN REGULAR, HUMAN 100 UNIT/ML 3ML VIAL LOW DOSE SS SQ-INSULIN SCH ×2 (06:02→10:52)
[2018-02-24 07:33] VITALS: BP 97/48
[2018-02-24] MEDS: IBUPROFEN 800 MG TABLET PO SCH (09:08)
[2018-02-24] MEDS: OMEPRAZOLE 20 MG CAPSULE.DR PO SCH (09:08)
[2018-02-24] MEDS: D5%-0.45NACL+KCL 20MEQ 1,000 ML IV SCH (10:48)
== END 2018-02-24 13:35 | disposition home or self-care (01) | DRG 329 ==
LOC: ORIP 09:35 → 4NOR 15:15
PROVIDERS: ADMIT Surgery; ATTEND Surgery
PROC: 0W9F0ZZ Drainage of Abdominal Wall, Open Approach (ICD-10-PCS; 2018-02-22)
PROC: 0WQF0ZZ Repair Abdominal Wall, Open Approach (ICD-10-PCS; 2018-02-22)
PROC: 0D1M0Z4 Bypass Descending Colon to Cutaneous, Open Approach (ICD-10-PCS; 2018-02-22)
PROC: 0DBP8ZX Excision of Rectum, Via Natural or Artificial Opening Endoscopic, Diagnostic (ICD-10-PCS; principal; 2018-02-22 12:00)
DX: K62.4 Stenosis of anus and rectum (principal); J96.00 Acute respiratory failure, unspecified whether with hypoxia or hypercapnia; N17.9 Acute kidney failure, unspecified; N18.9 Chronic kidney disease, unspecified; Z88.2 Allergy status to sulfonamides; E11.40 Type 2 diabetes mellitus with diabetic neuropathy, unspecified; E11.22 Type 2 diabetes mellitus with diabetic chronic kidney disease; I25.10 Atherosclerotic heart disease of native coronary artery without angina pectoris; I12.9 Hypertensive chronic kidney disease with stage 1 through stage 4 chronic kidney disease, or unspecified chronic kidney disease; E78.00 Pure hypercholesterolemia, unspecified; K43.2 Incisional hernia without obstruction or gangrene
CPT/HCPCS: 36415; 80048; 80053; 82962; 85025; 88305; 88331; 88334; J1100; J1644; J1815; J2250; J2704; J2710; J3010; J3490; Q0162; J2370; J3480; J7120; S0074

== ENCOUNTER 2018-03-05 13:55 | Inpatient (IN) | payer OTHER ==
[~2018-03-05] VITALS: Ht 160 cm; Wt 83.1 kg
[2018-03-05 14:44] VITALS: BP 107/67
[2018-03-05] MEDS ORDERED: IBUP200C8 PO (14:59)
[2018-03-05] MEDS ORDERED: ACET325T14 PO (14:59)
[2018-03-05] MEDS ORDERED: BUPIVACAINE/PF 0.5% ONE (16:23)
[2018-03-05] MEDS ORDERED: INDOCYANINE GREEN 25 MG VIAL ONE (16:23)
[2018-03-05] MEDS ORDERED: LACTATED RINGERS 1,000 ML IV SCH (16:35)
[2018-03-05] MEDS ORDERED: ACETAMINOPHEN 500 MG TABLET ONE (16:37)
[2018-03-05] MEDS ORDERED: FENTANYL PF 250 MCG/5ML ONE ×2 (16:43→17:44)
[2018-03-05] MEDS ORDERED: MIDAZOLAM 1 MG/ML, 2ML ONE (16:43)
[2018-03-05] MEDS ORDERED: METOPROLOL 1 MG/ML, 5ML ONE (16:50)
[2018-03-05] MEDS ORDERED: EPHEDRINE 50 MG/ML, 1ML ONE (16:50)
[2018-03-05] MEDS ORDERED: PROPOFOL 10 MG/ML, 20ML ONE (16:50)
[2018-03-05] MEDS ORDERED: LABETALOL 5MG/ML, 20ML ONE ×2 (16:50→19:49)
[2018-03-05] MEDS ORDERED: ROCURONIUM 10 MG/ML,10ML ONE (16:50)
[2018-03-05] MEDS ORDERED: ACETAMINOPHEN 500 MG TABLET PO ONE (17:00)
[2018-03-05] MEDS ORDERED: HYDROmorphone 1 MG/ML, 1ML IV PRN (18:00)
[2018-03-05] MEDS ORDERED: MORPHINE SULFATE 4 MG/ML, 1ML IVPush PRN (18:00)
[2018-03-05] MEDS ORDERED: ALBUTEROL SULFATE 2.5 MG/3 ML NPPB PRN (18:00)
[2018-03-05] MEDS ORDERED: OXYcodone 5 MG/5 ML ORAL.SOL UDC PO PRN (18:00)
[2018-03-05] MEDS ORDERED: LORazepam 2 MG/ML, 1ML IVPush PRN ×2 (18:00→23:45)
[2018-03-05] MEDS ORDERED: FENTANYL PF 100 MCG/2ML IV PRN (18:00)
[2018-03-05] MEDS ORDERED: PROMETHAZINE 25 MG/ML, 1ML IV PRN (18:00)
[2018-03-05] MEDS ORDERED: hydrALAzine 20 MG/ML, 1ML IV PRN (18:00)
[2018-03-05] MEDS ORDERED: SUGAMMADEX 200 MG/2 ML IVPush ONE (19:01)
[2018-03-05] MEDS ORDERED: FENTANYL PF 100 MCG/2ML ONE (19:08)
[2018-03-05] MEDS: LABETALOL 5MG/ML, 20ML IV PRN ×2 (19:50→20:13)
[2018-03-05] MEDS ORDERED: morphine SULFATE 10 MG/ML, 1ML ONE (20:38)
[2018-03-05] MEDS ORDERED: OXYcodone 5 MG/5 ML ORAL.SOL UDC ONE (20:38)
[2018-03-05] MEDS: INSULIN REGULAR 100 UNITS/ML, 3ML VIAL SQ-INSULIN SCH (21:28)
[2018-03-05 21:30] VITALS: BP 123/75
[2018-03-05] MEDS ORDERED: ONDANSETRON 2MG/ML, 2ML IV PRN (23:45)
[2018-03-05] MEDS ORDERED: SCOPOLAMINE PATCH, 1.5MG PATCH.TD72 TD PRN (23:45)
[2018-03-05] MEDS ORDERED: HALOPERIDOL 5 MG/ML IVPush PRN (23:45)
[2018-03-05] MEDS ORDERED: DIPHENHYDRAMINE 25 MG CAPSULE PO PRN (23:45)
[2018-03-05] MEDS ORDERED: HYDROmorphone 2 MG/ML, 1ML IVPush PRN (23:45)
[2018-03-05] MEDS ORDERED: DIPHENHYDRAMINE 50 MG/ML, 1ML IVPush PRN (23:45)
[2018-03-05] MEDS ORDERED: LORazepam 1MG TABLET PO PRN (23:45)
[2018-03-05] MEDS ORDERED: CALCIUM CARBONATE 500 MG TAB.CHEW PO PRN (23:45)
[2018-03-05] MEDS ORDERED: DEXAMETHASONE 4 MG/ML, 1ML IVPush PRN (23:45)
[2018-03-06 00:22] VITALS: BP 125/77
[2018-03-06] MEDS: D5%-0.45NACL+KCL 20MEQ 1,000 ML IV SCH ×2 (01:07→13:36)
[2018-03-06] MEDS: ACETAMINOPHEN 500 MG TABLET PO SCH ×4 (01:07→21:27)
[2018-03-06] MEDS: OXYcodone IR 5MG TABLET PO PRN ×7 (01:07→22:24)
[2018-03-06 03:16] VITALS: BP 127/72
[2018-03-06 08:17] VITALS: BP 100/43
[2018-03-06 09:09] LABS: BASOPHILS # (AUTO) 0.01 x10^3/uL (0-0.1); BASOPHILS % (AUTO) 0 % (0-1); EOSINOPHILS # (AUTO) 0.37 x10^3/uL (0-0.4); EOSINOPHILS % (AUTO) 3 % (1-7); LYMPHOCYTES # (AUTO) 0.64 x10^3/uL (1-3.4); LYMPHOCYTES % (AUTO) 5 % (22-44); MD NO; MEAN CORPUSCULAR HEMOGLOBIN 26.4 pg (27.0-34.8); MEAN CORPUSCULAR VOLUME 82.6 fL (80-100); MEAN PLATELET VOLUME 8.5 fL (7.4-10.4); MONOCYTES # (AUTO) 0.77 x10^3/uL (0.2-0.8); MONOCYTES % (AUTO) 6 % (2-9); NEUTROPHILS # (AUTO) 11.61 x10^3/uL (1.8-6.8); NEUTROPHILS % (AUTO) 87 % (42-75); PLATELET COUNT 213 x10^3/uL (130-400); RED BLOOD COUNT 4.22 x10^6/uL (3.82-5.3); RED CELL DISTRIBUTION WIDTH 17.3 % (9.6-15.2)
[2018-03-06] MEDS: IBUPROFEN 800 MG TABLET PO SCH ×3 (09:13→22:24)
[2018-03-06 09:17] LABS: CHLORIDE 108 mmol/L (98-107)
[2018-03-06 09:18] LABS: ANION GAP 8 mmol/L (5-15); CALCIUM 8.3 mg/dL (8.5-10.1); CREATININE 1.93 mg/dL (0.55-1.02)
[2018-03-06] MEDS: INSULIN REGULAR 100 UNITS/ML, 3ML VIAL SQ-INSULIN SCH ×3 (10:06→16:29)
[2018-03-06 13:57] VITALS: BP 107/43
[2018-03-06] MEDS: HEPARIN 5,000 UNITS/ML, 1ML SQ SCH (17:59)
[2018-03-06 19:05] VITALS: BP 87/45
[2018-03-07 01:49] VITALS: BP 113/62
[2018-03-07] MEDS: ACETAMINOPHEN 500 MG TABLET PO SCH ×4 (02:13→21:08)
[2018-03-07] MEDS: OXYcodone IR 5MG TABLET PO PRN ×2 (02:14→19:14)
[2018-03-07] MEDS: HEPARIN 5,000 UNITS/ML, 1ML SQ SCH ×3 (02:14→17:27)
[2018-03-07] MEDS: D5%-0.45NACL+KCL 20MEQ 1,000 ML IV SCH ×2 (03:54→17:38)
[2018-03-07 04:29] LABS: BASOPHILS # (AUTO) 0.02 x10^3/uL (0-0.1); BASOPHILS % (AUTO) 0 % (0-1); EOSINOPHILS # (AUTO) 0.67 x10^3/uL (0-0.4); EOSINOPHILS % (AUTO) 6 % (1-7); LYMPHOCYTES % (AUTO) 12 % (22-44); MD NO; MEAN CORPUSCULAR HEMOGLOBIN 26.9 pg (27.0-34.8); MEAN CORPUSCULAR HGB CONC 32.5 g/dL (32.4-35.8); MEAN CORPUSCULAR VOLUME 82.8 fL (80-100); MEAN PLATELET VOLUME 9.2 fL (7.4-10.4); MONOCYTES % (AUTO) 7 % (2-9); NEUTROPHILS # (AUTO) 9.03 x10^3/uL (1.8-6.8); NEUTROPHILS % (AUTO) 76 % (42-75); PLATELET COUNT 180 x10^3/uL (130-400); RED BLOOD COUNT 3.49 x10^6/uL (3.82-5.3); RED CELL DISTRIBUTION WIDTH 17.5 % (9.6-15.2)
[2018-03-07 04:36] LABS: ANION GAP 9 mmol/L (5-15); CALCIUM 7.9 mg/dL (8.5-10.1); CHLORIDE 100 mmol/L (98-107); CREATININE 1.77 mg/dL (0.55-1.02)
[2018-03-07] MEDS: INSULIN REGULAR 100 UNITS/ML, 3ML VIAL SQ-INSULIN SCH ×4 (06:29→21:08)
[2018-03-07 07:29] VITALS: BP 101/54
[2018-03-07] MEDS: IBUPROFEN 800 MG TABLET PO SCH ×3 (08:31→22:58)
[2018-03-07 14:30] VITALS: BP 102/58
[2018-03-07 19:54] VITALS: BP 115/67
[2018-03-08 00:19] VITALS: BP 131/70
[2018-03-08] MEDS: ACETAMINOPHEN 500 MG TABLET PO SCH ×4 (04:23→23:15)
[2018-03-08] MEDS: HEPARIN 5,000 UNITS/ML, 1ML SQ SCH ×3 (04:23→20:31)
[2018-03-08] MEDS: OXYcodone IR 5MG TABLET PO PRN (04:32)
[2018-03-08 05:10] LABS: BASOPHILS # (AUTO) 0.03 x10^3/uL (0-0.1); BASOPHILS % (AUTO) 0 % (0-1); EOSINOPHILS # (AUTO) 0.71 x10^3/uL (0-0.4); EOSINOPHILS % (AUTO) 7 % (1-7); LYMPHOCYTES # (AUTO) 1.67 x10^3/uL (1-3.4); LYMPHOCYTES % (AUTO) 16 % (22-44); MD NO; MEAN CORPUSCULAR HEMOGLOBIN 27.4 pg (27.0-34.8); MEAN CORPUSCULAR VOLUME 82.9 fL (80-100); MEAN PLATELET VOLUME 9.1 fL (7.4-10.4); MONOCYTES # (AUTO) 0.68 x10^3/uL (0.2-0.8); MONOCYTES % (AUTO) 7 % (2-9); NEUTROPHILS % (AUTO) 70 % (42-75); PLATELET COUNT 175 x10^3/uL (130-400); RED CELL DISTRIBUTION WIDTH 17.6 % (9.6-15.2)
[2018-03-08 05:24] LABS: ANION GAP 8 mmol/L (5-15); CALCIUM 8.2 mg/dL (8.5-10.1); CHLORIDE 106 mmol/L (98-107); CREATININE 1.25 mg/dL (0.55-1.02)
[2018-03-08 07:00] VITALS: BP 134/63
[2018-03-08] MEDS: INSULIN REGULAR 100 UNITS/ML, 3ML VIAL SQ-INSULIN SCH ×4 (07:20→20:31)
[2018-03-08] MEDS: D5%-0.45NACL+KCL 20MEQ 1,000 ML IV SCH ×2 (08:27→22:48)
[2018-03-08] MEDS: IBUPROFEN 800 MG TABLET PO SCH ×3 (09:21→20:31)
[2018-03-08 12:50] VITALS: BP 105/61
[2018-03-08 18:47] VITALS: BP 131/74
[2018-03-09 01:55] VITALS: BP 145/76
[2018-03-09] MEDS: HEPARIN 5,000 UNITS/ML, 1ML SQ SCH (04:42)
[2018-03-09 04:53] LABS: BASOPHILS # (AUTO) 0.03 x10^3/uL (0-0.1); BASOPHILS % (AUTO) 0 % (0-1); EOSINOPHILS # (AUTO) 0.84 x10^3/uL (0-0.4); EOSINOPHILS % (AUTO) 8 % (1-7); LYMPHOCYTES # (AUTO) 1.47 x10^3/uL (1-3.4); LYMPHOCYTES % (AUTO) 15 % (22-44); MD NO; MEAN CORPUSCULAR HEMOGLOBIN 26.6 pg (27.0-34.8); MEAN CORPUSCULAR HGB CONC 32.2 g/dL (32.4-35.8); MEAN CORPUSCULAR VOLUME 82.6 fL (80-100); MEAN PLATELET VOLUME 9.4 fL (7.4-10.4); MONOCYTES # (AUTO) 0.58 x10^3/uL (0.2-0.8); MONOCYTES % (AUTO) 6 % (2-9); NEUTROPHILS # (AUTO) 7.27 x10^3/uL (1.8-6.8); NEUTROPHILS % (AUTO) 71 % (42-75); PLATELET COUNT 224 x10^3/uL (130-400)
[2018-03-09 05:06] LABS: ANION GAP 8 mmol/L (5-15); CHLORIDE 109 mmol/L (98-107); CREATININE 1.09 mg/dL (0.55-1.02)
[2018-03-09] MEDS: ACETAMINOPHEN 500 MG TABLET PO SCH (06:03)
[2018-03-09] MEDS: INSULIN REGULAR 100 UNITS/ML, 3ML VIAL SQ-INSULIN SCH (07:00)
[2018-03-09 07:25] VITALS: BP 175/74
[2018-03-09] MEDS ORDERED: OXYC-302 PO (08:48)
[2018-03-09] MEDS ORDERED: ATORVASTATIN 80 MG TABLET PO SCH (09:00)
[2018-03-09] MEDS: IBUPROFEN 800 MG TABLET PO SCH (09:00)
== END 2018-03-09 11:20 | disposition home or self-care (01) | DRG 329 ==
LOC: ORIP 13:55 → EDSTATUS 17:00 → 4NOR 21:25
PROVIDERS: ADMIT Surgery; ATTEND Surgery
PROC: 8E0W0CZ Robotic Assisted Procedure of Trunk Region, Open Approach (ICD-10-PCS; 2018-03-05)
PROC: 0D1N0Z4 Bypass Sigmoid Colon to Cutaneous, Open Approach (ICD-10-PCS; principal; 2018-03-05 17:00)
DX: K50.90 Crohn's disease, unspecified, without complications (principal); N17.0 Acute kidney failure with tubular necrosis; K63.3 Ulcer of intestine; K62.9 Disease of anus and rectum, unspecified; Z93.3 Colostomy status; I10 Essential (primary) hypertension; E78.5 Hyperlipidemia, unspecified
CPT/HCPCS: 36415; 80048; 82962; 85025; 88309; C1729; J1644; J1815; J2250; J2405; J2704; J3010; J3490; J3480; J7120

== ENCOUNTER → 2018-04-03 | Outpatient (CLI) | payer OTHER ==
[~2018-04-03] MED LIST changes: +ACET325T14 PO; -AMLO10TA2 PO; +AMLO10TA6 PO; -AMLO5TAB2 PO; +AMLO5TAB7 PO; +IBUP200C8 PO; +METF850T10 PO; -METF850T2 PO; +OXYC-302 PO; -SENN1TAB7 PO; +SENN1TAB8 PO
== END | disposition home or self-care (01) ==
LOC: WOUND 09:11
PROVIDERS: ATTEND Internal Medicine
DX: Z93.3 Colostomy status (principal); I10 Essential (primary) hypertension; E78.5 Hyperlipidemia, unspecified; Z87.891 Personal history of nicotine dependence
CPT/HCPCS: 99215

== ENCOUNTER → 2018-04-17 | Outpatient (CLI) | payer OTHER | END | disposition home or self-care (01) | LOC: WOUND 09:47 | PROVIDERS: ATTEND Internal Medicine | DX: Z93.3 Colostomy status (principal); I10 Essential (primary) hypertension; E78.5 Hyperlipidemia, unspecified; Z87.891 Personal history of nicotine dependence | CPT/HCPCS: 99214 ==

== ENCOUNTER → 2018-04-26 | Outpatient (CLI) | payer OTHER | END | disposition home or self-care (01) | LOC: WOUND 08:07 | PROVIDERS: ATTEND Family Medicine | DX: Z93.3 Colostomy status (principal); I10 Essential (primary) hypertension; E78.5 Hyperlipidemia, unspecified; E11.9 Type 2 diabetes mellitus without complications; Z87.891 Personal history of nicotine dependence | CPT/HCPCS: 99213 ==

== ENCOUNTER → 2018-05-06 | Outpatient (CLI) | payer OTHER | END | disposition home or self-care (01) | LOC: WOUND 08:46 | PROVIDERS: ATTEND Internal Medicine | DX: Z93.3 Colostomy status (principal); I10 Essential (primary) hypertension; E78.5 Hyperlipidemia, unspecified; Z87.891 Personal history of nicotine dependence | CPT/HCPCS: 99214 ==

== ENCOUNTER 2018-06-19 08:16 | Outpatient (CLI) | payer OTHER | END 2018-06-28 11:26 | disposition home or self-care (01) | LOC: WOUND 08:16 | PROVIDERS: ATTEND Internal Medicine Cardiovascular Disease | DX: Z93.3 Colostomy status (principal); E11.9 Type 2 diabetes mellitus without complications; I10 Essential (primary) hypertension; E78.5 Hyperlipidemia, unspecified; Z87.891 Personal history of nicotine dependence | CPT/HCPCS: 99213 ==

== ENCOUNTER → 2018-06-26 | Outpatient (CLI) | payer OTHER | END | disposition home or self-care (01) | LOC: WOUND 09:08 | PROVIDERS: ATTEND Internal Medicine | DX: Z93.3 Colostomy status (principal); E11.9 Type 2 diabetes mellitus without complications; I10 Essential (primary) hypertension; E78.5 Hyperlipidemia, unspecified; Z87.891 Personal history of nicotine dependence | CPT/HCPCS: 99213 ==

== ENCOUNTER → 2018-11-06 | Outpatient (CLI) | payer MEDICARE ==
[~2018-11-06] MED LIST changes: +AMLO-150 PO; -AMLO10TA6 PO; +AMLO10TA8 PO; -AMLO5TAB7 PO; -ASPI-621 PO; +ASPI81TA45 PO; +BIOT800T PO; +CYAN25009 PO; +FERR-46 PO; +MAGN400T7 PO; +MULT-717 PO; +SENN-177 PO; -SENN1TAB8 PO; +THIA50TA4 PO
[2018-11-06 09:24] LABS: BASOPHILS # (AUTO) 0.04 x10^3/uL (0-0.1); BASOPHILS % (AUTO) 1 % (0-1); EOSINOPHILS # (AUTO) 0.13 x10^3/uL (0-0.4); EOSINOPHILS % (AUTO) 2 % (1-7); LYMPHOCYTES # (AUTO) 1.76 x10^3/uL (1-3.4); LYMPHOCYTES % (AUTO) 25 % (22-44); MD NO; MEAN CORPUSCULAR HEMOGLOBIN 28.2 pg (27.0-34.8); MEAN CORPUSCULAR HGB CONC 32.8 g/dL (32.4-35.8); MEAN CORPUSCULAR VOLUME 85.9 fL (80-100); MEAN PLATELET VOLUME 10.8 fL (7.4-10.4); MONOCYTES % (AUTO) 9 % (2-9); NEUTROPHILS # (AUTO) 4.39 x10^3/uL (1.8-6.8); NEUTROPHILS % (AUTO) 64 % (42-75); PLATELET COUNT 205 x10^3/uL (130-400); RED BLOOD COUNT 5.49 x10^6/uL (3.82-5.3); RED CELL DISTRIBUTION WIDTH 18.6 % (9.6-15.2)
[2018-11-06 09:26] LABS: ALANINE AMINOTRANSFERASE 63 U/L (12-78); ALBUMIN 3.7 g/dL (3.4-5.0); ANION GAP 6 mmol/L (5-15); CALCIUM 9.5 mg/dL (8.5-10.1); CHLORIDE 105 mmol/L (98-107); CREATININE 1.35 mg/dL (0.55-1.02)
[2018-11-06 09:28] LABS: ALKALINE PHOSPHATASE 101 U/L (45-117); BILIRUBIN,TOTAL 0.4 mg/dL (0.2-1.0); TOTAL PROTEIN 7.8 g/dL (6.4-8.2)
== END | disposition home or self-care (01) ==
LOC: STAR 07:55
PROVIDERS: ATTEND Surgery
DX: Z01.818 Encounter for other preprocedural examination (principal); I21.9 Acute myocardial infarction, unspecified
CPT/HCPCS: 36415; 80053; 85025; 93005

== ENCOUNTER 2018-11-13 05:57 | Inpatient (IN) | payer MEDICARE, OTHER ==
[~2018-11-13] VITALS: Ht 160 cm; Wt 89.0 kg
[2018-11-13 06:55] VITALS: BP 107/68
[2018-11-13] MEDS ORDERED: GABAPENTIN 300 MG CAPSULE PO ONE (07:00)
[2018-11-13] MEDS ORDERED: SCOPOLAMINE PATCH, 1.5MG PATCH.TD72 TD ONE (07:00)
[2018-11-13] MEDS ORDERED: ACETAMINOPHEN 500 MG TABLET PO ONE (07:00)
[2018-11-13] MEDS ORDERED: cloniDINE/PF 100 MCG/ML, 10 ML ONE (07:00)
[2018-11-13] MEDS ORDERED: LACTATED RINGERS 1,000 ML IV SCH (07:02)
[2018-11-13] MEDS ORDERED: INDOCYANINE GREEN 25 MG VIAL ONE (07:22)
[2018-11-13] MEDS ORDERED: BUPIVACAINE/PF-EPI 0.5% 1:200K ONE (07:22)
[2018-11-13] MEDS ORDERED: FENTANYL PF 250 MCG/5ML ONE ×2 (07:54→09:23)
[2018-11-13] MEDS ORDERED: MIDAZOLAM 1 MG/ML, 2ML ONE (07:54)
[2018-11-13] MEDS ORDERED: BUPIVACAINE/PF 0.25% ONE ×2 (07:56→08:01)
[2018-11-13] MEDS ORDERED: PROPOFOL 10 MG/ML, 20ML ONE (07:56)
[2018-11-13] MEDS ORDERED: ROCURONIUM 10MG/ML,5ML ONE ×2 (08:04→08:05)
[2018-11-13] MEDS ORDERED: DEXAMETHASONE 4 MG/ML, 5ML ONE (08:06)
[2018-11-13] MEDS ORDERED: PHENYLEPHRINE 10 MG/ML ONE (08:12)
[2018-11-13] MEDS ORDERED: ONDANSETRON 2MG/ML, 2ML ONE (08:12)
[2018-11-13] MEDS ORDERED: NEOSTIGMINE 1 MG/ML, 10ML ONE (08:12)
[2018-11-13] MEDS ORDERED: CEFOTETAN PMX 2GM/50ML 50 ML IVPB ONE (08:12)
[2018-11-13] MEDS ORDERED: GLYCOPYRROLATE 0.2MG/1ML, 5ML ONE (08:12)
[2018-11-13] MEDS ORDERED: SUCCINYLCHOLINE 20 MG/ML, 10ML ONE (08:12)
[2018-11-13] MEDS ORDERED: EPHEDRINE 50 MG/ML, 1ML ONE (08:12)
[2018-11-13] MEDS ORDERED: D5%-0.45NACL+KCL 20MEQ 1,000 ML IV SCH (12:05)
[2018-11-13] MEDS ORDERED: DIPHENHYDRAMINE 50 MG/ML, 1ML ONE (12:14)
[2018-11-13] MEDS ORDERED: ONDANSETRON 2MG/ML, 2ML IV PRN (12:30)
[2018-11-13] MEDS ORDERED: HALOPERIDOL 5 MG/ML IVPush PRN (12:30)
[2018-11-13] MEDS ORDERED: OXYcodone IR 5MG TABLET PO PRN (12:30)
[2018-11-13] MEDS ORDERED: HYDROmorphone 1 MG/ML, 1ML INJ IVPush PRN (12:30)
[2018-11-13] MEDS ORDERED: ONDANSETRON 2MG/ML, 2ML IVPush PRN (12:30)
[2018-11-13] MEDS ORDERED: FENTANYL PF 100 MCG/2ML IV PRN (12:30)
[2018-11-13] MEDS ORDERED: DIPHENHYDRAMINE 25 MG CAPSULE PO PRN (12:30)
[2018-11-13] MEDS ORDERED: DIPHENHYDRAMINE 50 MG/ML, 1ML IVPush PRN (12:30)
[2018-11-13] MEDS ORDERED: ACETAMINOPHEN 100 ML IVPB SCH (12:30)
[2018-11-13] MEDS ORDERED: SCOPOLAMINE PATCH, 1.5MG PATCH.TD72 TD PRN (12:30)
[2018-11-13] MEDS ORDERED: INSULIN LISPRO 100 UNITS/ML, PEN SQ-INSULIN SCH (12:30)
[2018-11-13] MEDS ORDERED: DIAZEPAM 5 MG/ML, 2ML IVPush PRN (12:30)
[2018-11-13] MEDS ORDERED: DIPHENHYDRAMINE 50 MG/ML, 1ML IM PRN (12:30)
[2018-11-13] MEDS ORDERED: HEPARIN 5,000 UNITS/ML, 1ML SQ SCH (12:30)
[2018-11-13] MEDS ORDERED: PROMETHAZINE 25 MG/ML, 1ML IV PRN (12:30)
[2018-11-13] MEDS ORDERED: LORazepam 2 MG/ML, 1ML IVPush PRN (12:30)
[2018-11-13] MEDS ORDERED: LORazepam 0.5MG TABLET PO PRN (12:30)
[2018-11-13] MEDS ORDERED: OXYcodone 5 MG/5 ML ORAL.SOL UDC PO PRN (12:30)
[2018-11-13] MEDS ORDERED: DEXAMETHASONE 4 MG/ML, 1ML IVPush PRN (12:30)
[2018-11-13] MEDS ORDERED: CALCIUM CARBONATE 500 MG TAB.CHEW PO PRN (12:30)
[2018-11-13] MEDS ORDERED: HYDROmorphone 2 MG/ML, 1ML IVPush PRN (12:30)
[2018-11-13] MEDS ORDERED: ONDANSETRON ODT 8 MG PO PRN (12:30)
[2018-11-13] MEDS: IBUPROFEN 800 MG TABLET PO SCH ×2 (16:00→21:07)
[2018-11-13] MEDS: ACETAMINOPHEN 100 ML IVPB SCH ×2 (18:32→23:00)
[2018-11-13] MEDS: INSULIN LISPRO 100 UNITS/ML, PEN SQ-INSULIN SCH ×2 (18:33→23:02)
[2018-11-13] MEDS: ATORVASTATIN 80 MG TABLET PO SCH (21:07)
[2018-11-13 22:11] VITALS: BP 88/57
[2018-11-13] MEDS ORDERED: SODIUM CHLORIDE 0.9% 1,000 ML IV ONE (23:30)
[2018-11-13 23:43] LABS: BASOPHILS % (AUTO) 0 % (0-1); EOSINOPHILS % (AUTO) 0 % (1-7); LYMPHOCYTES # (AUTO) 0.65 x10^3/uL (1-3.4); LYMPHOCYTES % (AUTO) 6 % (22-44); MD NO; MEAN CORPUSCULAR HEMOGLOBIN 28.7 pg (27.0-34.8); MEAN CORPUSCULAR HGB CONC 33.2 g/dL (32.4-35.8); MEAN CORPUSCULAR VOLUME 86.5 fL (80-100); MEAN PLATELET VOLUME 10.3 fL (7.4-10.4); MONOCYTES # (AUTO) 0.56 x10^3/uL (0.2-0.8); MONOCYTES % (AUTO) 6 % (2-9); NEUTROPHILS # (AUTO) 9.06 x10^3/uL (1.8-6.8); NEUTROPHILS % (AUTO) 88 % (42-75); PLATELET COUNT 166 x10^3/uL (130-400); RED BLOOD COUNT 4.51 x10^6/uL (3.82-5.3); RED CELL DISTRIBUTION WIDTH 17.7 % (9.6-15.2)
[2018-11-14 00:58] VITALS: BP 92/57
[2018-11-14 03:39] LABS: BASOPHILS % (AUTO) 0 % (0-1); EOSINOPHILS % (AUTO) 0 % (1-7); LYMPHOCYTES % (AUTO) 8 % (22-44); MD NO; MEAN CORPUSCULAR HEMOGLOBIN 28.7 pg (27.0-34.8); MEAN CORPUSCULAR VOLUME 86.8 fL (80-100); MONOCYTES % (AUTO) 10 % (2-9); NEUTROPHILS # (AUTO) 9.97 x10^3/uL (1.8-6.8); NEUTROPHILS % (AUTO) 83 % (42-75); PLATELET COUNT 152 x10^3/uL (130-400); RED BLOOD COUNT 4.44 x10^6/uL (3.82-5.3); RED CELL DISTRIBUTION WIDTH 17.7 % (9.6-15.2)
[2018-11-14 03:51] LABS: ANION GAP 8 mmol/L (5-15); CALCIUM 7.9 mg/dL (8.5-10.1); CHLORIDE 107 mmol/L (98-107)
[2018-11-14] MEDS: ACETAMINOPHEN 100 ML IVPB SCH ×2 (05:27→10:44)
[2018-11-14] MEDS: OMEPRAZOLE 20 MG CAPSULE.DR PO SCH (06:05)
[2018-11-14] MEDS ORDERED: LACTATED RINGERS 1,000 ML IVBOLUS ONE (07:00)
[2018-11-14 08:18] VITALS: BP 84/43
[2018-11-14] MEDS: MAGNESIUM OXIDE 400 MG TABLET PO SCH (08:22)
[2018-11-14] MEDS: IBUPROFEN 800 MG TABLET PO SCH ×3 (08:22→20:33)
[2018-11-14] MEDS: LINAGLIPTIN 5 MG TAB PO SCH (08:22)
[2018-11-14] MEDS: INSULIN LISPRO 100 UNITS/ML, PEN SQ-INSULIN SCH ×4 (08:23→20:31)
[2018-11-14] MEDS: HEPARIN 5,000 UNITS/ML, 1ML SQ SCH ×2 (10:44→18:38)
[2018-11-14 12:46] LABS: BASOPHILS # (AUTO) 0.02 x10^3/uL (0-0.1); BASOPHILS % (AUTO) 0 % (0-1); EOSINOPHILS # (AUTO) 0.02 x10^3/uL (0-0.4); EOSINOPHILS % (AUTO) 0 % (1-7); LYMPHOCYTES % (AUTO) 10 % (22-44); MD NO; MEAN CORPUSCULAR HEMOGLOBIN 28.7 pg (27.0-34.8); MEAN CORPUSCULAR HGB CONC 33.1 g/dL (32.4-35.8); MEAN CORPUSCULAR VOLUME 86.8 fL (80-100); MEAN PLATELET VOLUME 10.5 fL (7.4-10.4); MONOCYTES # (AUTO) 0.57 x10^3/uL (0.2-0.8); MONOCYTES % (AUTO) 5 % (2-9); NEUTROPHILS # (AUTO) 9.64 x10^3/uL (1.8-6.8); NEUTROPHILS % (AUTO) 85 % (42-75); PLATELET COUNT 155 x10^3/uL (130-400); RED BLOOD COUNT 4.29 x10^6/uL (3.82-5.3); RED CELL DISTRIBUTION WIDTH 17.8 % (9.6-15.2)
[2018-11-14 12:54] LABS: ANION GAP 10 mmol/L (5-15); CALCIUM 7.9 mg/dL (8.5-10.1); CHLORIDE 106 mmol/L (98-107); CREATININE 2.33 mg/dL (0.55-1.02)
[2018-11-14 15:00] VITALS: BP 93/58
[2018-11-14] MEDS: SODIUM CHLORIDE 0.9% 1,000 ML IV SCH (16:24)
[2018-11-14 19:07] VITALS: BP 92/58
[2018-11-14] MEDS: ATORVASTATIN 80 MG TABLET PO SCH (20:33)
[2018-11-15] MEDS: HEPARIN 5,000 UNITS/ML, 1ML SQ SCH ×3 (01:46→20:23)
[2018-11-15 02:25] VITALS: BP 114/65
[2018-11-15 03:13] LABS: BASOPHILS # (AUTO) 0.08 x10^3/uL (0-0.1); BASOPHILS % (AUTO) 1 % (0-1); EOSINOPHILS # (AUTO) 0.31 x10^3/uL (0-0.4); EOSINOPHILS % (AUTO) 3 % (1-7); LYMPHOCYTES # (AUTO) 1.93 x10^3/uL (1-3.4); LYMPHOCYTES % (AUTO) 19 % (22-44); MD NO; MEAN CORPUSCULAR HEMOGLOBIN 29.1 pg (27.0-34.8); MEAN CORPUSCULAR HGB CONC 33.4 g/dL (32.4-35.8); MEAN CORPUSCULAR VOLUME 86.9 fL (80-100); MEAN PLATELET VOLUME 10.2 fL (7.4-10.4); MONOCYTES # (AUTO) 0.71 x10^3/uL (0.2-0.8); MONOCYTES % (AUTO) 7 % (2-9); NEUTROPHILS # (AUTO) 7.25 x10^3/uL (1.8-6.8); NEUTROPHILS % (AUTO) 71 % (42-75); PLATELET COUNT 137 x10^3/uL (130-400); RED BLOOD COUNT 3.88 x10^6/uL (3.82-5.3); RED CELL DISTRIBUTION WIDTH 18.6 % (9.6-15.2)
[2018-11-15 03:26] LABS: ANION GAP 6 mmol/L (5-15); CALCIUM 7.7 mg/dL (8.5-10.1); CHLORIDE 115 mmol/L (98-107); CREATININE 1.78 mg/dL (0.55-1.02)
[2018-11-15] MEDS: OMEPRAZOLE 20 MG CAPSULE.DR PO SCH (06:49)
[2018-11-15] MEDS: SODIUM CHLORIDE 0.9% 1,000 ML IV SCH (06:49)
[2018-11-15 07:00] VITALS: BP 116/67
[2018-11-15] MEDS: INSULIN LISPRO 100 UNITS/ML, PEN SQ-INSULIN SCH ×4 (07:00→20:24)
[2018-11-15] MEDS: MAGNESIUM OXIDE 400 MG TABLET PO SCH (08:12)
[2018-11-15] MEDS: IBUPROFEN 800 MG TABLET PO SCH ×3 (08:12→20:24)
[2018-11-15] MEDS: LINAGLIPTIN 5 MG TAB PO SCH (08:28)
[2018-11-15 14:25] VITALS: BP 138/75
[2018-11-15 18:57] VITALS: BP 148/77
[2018-11-15] MEDS: ATORVASTATIN 80 MG TABLET PO SCH (20:24)
[2018-11-16 02:12] VITALS: BP 129/72
[2018-11-16] MEDS: SODIUM CHLORIDE 0.9% 1,000 ML IV SCH (02:31)
[2018-11-16 03:36] LABS: BASOPHILS # (AUTO) 0.03 x10^3/uL (0-0.1); BASOPHILS % (AUTO) 0 % (0-1); EOSINOPHILS # (AUTO) 0.37 x10^3/uL (0-0.4); EOSINOPHILS % (AUTO) 4 % (1-7); LYMPHOCYTES # (AUTO) 1.94 x10^3/uL (1-3.4); LYMPHOCYTES % (AUTO) 23 % (22-44); MD NO; MEAN CORPUSCULAR HEMOGLOBIN 28.8 pg (27.0-34.8); MEAN CORPUSCULAR HGB CONC 33.5 g/dL (32.4-35.8); MEAN CORPUSCULAR VOLUME 85.9 fL (80-100); MONOCYTES # (AUTO) 0.63 x10^3/uL (0.2-0.8); MONOCYTES % (AUTO) 7 % (2-9); NEUTROPHILS % (AUTO) 65 % (42-75); PLATELET COUNT 139 x10^3/uL (130-400); RED BLOOD COUNT 3.95 x10^6/uL (3.82-5.3); RED CELL DISTRIBUTION WIDTH 17.5 % (9.6-15.2)
[2018-11-16] MEDS: HEPARIN 5,000 UNITS/ML, 1ML SQ SCH (03:36)
[2018-11-16 03:45] LABS: ANION GAP 6 mmol/L (5-15); CALCIUM 8.3 mg/dL (8.5-10.1); CHLORIDE 117 mmol/L (98-107); CREATININE 1.24 mg/dL (0.55-1.02)
[2018-11-16] MEDS: OMEPRAZOLE 20 MG CAPSULE.DR PO SCH (06:06)
[2018-11-16] MEDS: INSULIN LISPRO 100 UNITS/ML, PEN SQ-INSULIN SCH (06:37)
[2018-11-16 07:10] VITALS: BP 166/71
[2018-11-16] MEDS ORDERED: TRAM50TA2 PO (08:39)
[2018-11-16] MEDS: IBUPROFEN 800 MG TABLET PO SCH (08:49)
[2018-11-16] MEDS: MAGNESIUM OXIDE 400 MG TABLET PO SCH (08:49)
[2018-11-16] MEDS: LINAGLIPTIN 5 MG TAB PO SCH (08:49)
== END 2018-11-16 10:20 | disposition home or self-care (01) | DRG 329 ==
LOC: ORIP 05:57 → EDSTATUS 08:00 → 4NOR 14:42 → DCLOUNGE 11-16 10:08
PROVIDERS: ADMIT Surgery; ATTEND Surgery
PROC: 0D1B4Z4 Bypass Ileum to Cutaneous, Percutaneous Endoscopic Approach (ICD-10-PCS; 2018-11-13)
PROC: 8E0W4CZ Robotic Assisted Procedure of Trunk Region, Percutaneous Endoscopic Approach (ICD-10-PCS; 2018-11-13)
PROC: 0WQF4ZZ Repair Abdominal Wall, Percutaneous Endoscopic Approach (ICD-10-PCS; 2018-11-13)
PROC: 0DSP4ZZ Reposition Rectum, Percutaneous Endoscopic Approach (ICD-10-PCS; 2018-11-13)
PROC: 3E0T3BZ Introduction of Anesthetic Agent into Peripheral Nerves and Plexi, Percutaneous Approach (ICD-10-PCS; principal; 2018-11-13 08:00)
DX: Z43.3 Encounter for attention to colostomy (principal); N17.0 Acute kidney failure with tubular necrosis; K50.10 Crohn's disease of large intestine without complications; Z88.2 Allergy status to sulfonamides; E78.00 Pure hypercholesterolemia, unspecified; I25.10 Atherosclerotic heart disease of native coronary artery without angina pectoris; E78.2 Mixed hyperlipidemia; N18.2 Chronic kidney disease, stage 2 (mild); I12.9 Hypertensive chronic kidney disease with stage 1 through stage 4 chronic kidney disease, or unspecified chronic kidney disease; K43.5 Parastomal hernia without obstruction or gangrene; E11.22 Type 2 diabetes mellitus with diabetic chronic kidney disease; Z90.49 Acquired absence of other specified parts of digestive tract; Z80.1 Family history of malignant neoplasm of trachea, bronchus and lung; I25.2 Old myocardial infarction; Z95.5 Presence of coronary angioplasty implant and graft
CPT/HCPCS: 36415; 80048; 82962; 85025; 86850; 86900; 88304; 88307; G0378; J0131; J1100; J1644; J2250; J2405; J2704; J2710; J3010; J3490; J0330; J0735; J1200; J1815; J2370; J3480; J7030; Q0163

== ENCOUNTER → 2018-12-19 | Outpatient (CLI) | payer MEDICARE ==
[~2018-12-19] MED LIST changes: +TRAM50TA2 PO
== END | disposition home or self-care (01) ==
LOC: RAD 06:41
PROVIDERS: ATTEND Surgery
DX: Z01.818 Encounter for other preprocedural examination (principal); E11.9 Type 2 diabetes mellitus without complications; I10 Essential (primary) hypertension; E78.5 Hyperlipidemia, unspecified; E78.00 Pure hypercholesterolemia, unspecified; Z88.2 Allergy status to sulfonamides; Z87.891 Personal history of nicotine dependence; Z90.49 Acquired absence of other specified parts of digestive tract; Z93.2 Ileostomy status
CPT/HCPCS: 74270

== ENCOUNTER → 2018-12-23 | Outpatient (CLI) | payer MEDICARE, OTHER | END | disposition home or self-care (01) | LOC: WOUND 10:22 | PROVIDERS: ATTEND Internal Medicine | DX: Z93.2 Ileostomy status (principal); I13.10 Hypertensive heart and chronic kidney disease without heart failure, with stage 1 through stage 4 chronic kidney disease, or unspecified chronic kidney disease; E11.22 Type 2 diabetes mellitus with diabetic chronic kidney disease; N18.2 Chronic kidney disease, stage 2 (mild); E78.2 Mixed hyperlipidemia; I25.2 Old myocardial infarction; E78.5 Hyperlipidemia, unspecified; E78.00 Pure hypercholesterolemia, unspecified; I25.10 Atherosclerotic heart disease of native coronary artery without angina pectoris; Z87.891 Personal history of nicotine dependence; Z88.2 Allergy status to sulfonamides; Z95.5 Presence of coronary angioplasty implant and graft; Z90.49 Acquired absence of other specified parts of digestive tract | CPT/HCPCS: G0463 ==

== ENCOUNTER 2018-12-25 08:00 | Inpatient (IN) | payer MEDICARE ==
[~2018-12-25] VITALS: Ht 160 cm; Wt 84.0 kg
[2019-01-08] MEDS ORDERED: HYDR-3237 PO (09:45)
[2019-01-08 09:46] VITALS: BP 117/78
[2019-01-15] MEDS ORDERED: ACETAMINOPHEN 500 MG TABLET PO ONE (07:30)
[2019-01-15] MEDS ORDERED: GABAPENTIN 300 MG CAPSULE PO ONE (07:30)
[2019-01-15] MEDS ORDERED: LACTATED RINGERS 1,000 ML IV SCH (07:37)
[2019-01-15] MEDS ORDERED: MIDAZOLAM 1 MG/ML, 2ML ONE (07:41)
[2019-01-15] MEDS ORDERED: FENTANYL PF 250 MCG/5ML ONE (07:41)
[2019-01-15] MEDS ORDERED: ROPIvacaine/PF 0.2%, 20 ML ONE ×2 (07:45)
[2019-01-15] MEDS ORDERED: ROCURONIUM 10MG/ML,5ML ONE (07:47)
[2019-01-15] MEDS ORDERED: PROPOFOL 10 MG/ML, 20ML ONE (07:47)
[2019-01-15] MEDS ORDERED: ONDANSETRON 2MG/ML, 2ML ONE (07:47)
[2019-01-15] MEDS ORDERED: GLYCOPYRROLATE 0.2MG/1ML, 5ML ONE (07:47)
[2019-01-15] MEDS ORDERED: NEOSTIGMINE 1 MG/ML, 10ML ONE (07:47)
[2019-01-15] MEDS ORDERED: DEXAMETHASONE 4 MG/ML, 1ML ONE (07:47)
[2019-01-15] MEDS ORDERED: PHENYLEPHRINE 10 MG/ML ONE (08:52)
[2019-01-15] MEDS ORDERED: CEFOTETAN PMX 2GM/50ML 50 ML ONE (08:53)
[2019-01-15] MEDS ORDERED: hydrALAzine 20 MG/ML, 1ML IV PRN (09:00)
[2019-01-15] MEDS ORDERED: PROMETHAZINE 25 MG SUPP PR PRN (09:00)
[2019-01-15] MEDS ORDERED: PROMETHAZINE 25 MG/ML, 1ML IV PRN (09:00)
[2019-01-15] MEDS ORDERED: MEPERIDINE/PF 25MG/0.5ML IVPush PRN (09:00)
[2019-01-15] MEDS ORDERED: HYDROmorphone 2 MG/ML, 1ML IVPush PRN (09:00)
[2019-01-15] MEDS ORDERED: ONDANSETRON 2MG/ML, 2ML IV PRN (09:00)
[2019-01-15] MEDS ORDERED: MORPHINE SULFATE 4 MG/ML, 1ML IVPush PRN (09:00)
[2019-01-15] MEDS ORDERED: PROMETHAZINE 12.5 MG SUPP PR PRN (09:00)
[2019-01-15] MEDS ORDERED: LABETALOL 5MG/ML, 20ML IV PRN (09:00)
[2019-01-15] MEDS ORDERED: PROMETHAZINE 25 MG/ML, 1ML IM PRN ×2 (09:00)
[2019-01-15] MEDS ORDERED: HALOPERIDOL 5 MG/ML IV PRN (09:00)
[2019-01-15] MEDS ORDERED: ONDANSETRON ODT 8 MG PO PRN (09:00)
[2019-01-15] MEDS ORDERED: OXYcodone 5 MG/5 ML ORAL.SOL UDC PO PRN (09:00)
[2019-01-15] MEDS ORDERED: D5%-0.45NACL+KCL 20MEQ 1,000 ML IV SCH (09:44)
[2019-01-15] MEDS ORDERED: DEXAMETHASONE 4 MG/ML, 1ML IVPush PRN (10:00)
[2019-01-15] MEDS ORDERED: LORazepam 2 MG/ML, 1ML IVPush PRN (10:00)
[2019-01-15] MEDS ORDERED: HEPARIN 5,000 UNITS/ML, 1ML SQ SCH (10:00)
[2019-01-15] MEDS ORDERED: SCOPOLAMINE PATCH, 1.5MG PATCH.TD72 TD PRN (10:00)
[2019-01-15] MEDS ORDERED: HYDROmorphone 1 MG/ML, 1ML INJ IVPush PRN (10:00)
[2019-01-15] MEDS ORDERED: CALCIUM CARBONATE 500 MG TAB.CHEW PO PRN (10:00)
[2019-01-15] MEDS: INSULIN LISPRO 100 UNITS/ML, PEN SQ-INSULIN SCH ×3 (10:00→21:32)
[2019-01-15] MEDS ORDERED: DIPHENHYDRAMINE 50 MG/ML, 1ML IVPush PRN (10:00)
[2019-01-15] MEDS: LABETALOL 5 MG/ML SYRINGE IV PRN ×2 (10:00→10:32)
[2019-01-15] MEDS ORDERED: OXYcodone 5 MG/5 ML ORAL.SOL UDC ONE (10:13)
[2019-01-15] MEDS ORDERED: FENTANYL PF 100 MCG/2ML ONE (10:14)
[2019-01-15] MEDS: FENTANYL PF 100 MCG/2ML IV PRN ×2 (10:23→10:56)
[2019-01-15 11:45] VITALS: BP 158/81
[2019-01-15] MEDS: ACETAMINOPHEN 100 ML IVPB SCH ×2 (13:35→21:27)
[2019-01-15] MEDS: OXYcodone IR 5MG TABLET PO PRN (13:54)
[2019-01-15 13:55] VITALS: BP 143/83
[2019-01-15] MEDS: IBUPROFEN 800 MG TABLET PO SCH ×2 (16:20→22:37)
[2019-01-15 19:11] VITALS: BP 113/62
[2019-01-15 23:45] VITALS: BP 135/77
[2019-01-16 03:26] VITALS: BP 120/70
[2019-01-16] MEDS: ACETAMINOPHEN 100 ML IVPB SCH ×2 (03:38→10:28)
[2019-01-16 05:36] LABS: BASOPHILS # (AUTO) 0.02 x10^3/uL (0-0.1); BASOPHILS % (AUTO) 0 % (0-1); EOSINOPHILS # (AUTO) 0.15 x10^3/uL (0-0.4); EOSINOPHILS % (AUTO) 2 % (1-7); LYMPHOCYTES # (AUTO) 1.25 x10^3/uL (1-3.4); LYMPHOCYTES % (AUTO) 18 % (22-44); MD NO; MEAN CORPUSCULAR HEMOGLOBIN 29.6 pg (27.0-34.8); MEAN CORPUSCULAR HGB CONC 32.5 g/dL (32.4-35.8); MEAN PLATELET VOLUME 10.1 fL (7.4-10.4); MONOCYTES % (AUTO) 8 % (2-9); NEUTROPHILS # (AUTO) 5.12 x10^3/uL (1.8-6.8); NEUTROPHILS % (AUTO) 72 % (42-75); PLATELET COUNT 141 x10^3/uL (130-400); RED BLOOD COUNT 4.49 x10^6/uL (3.82-5.3); RED CELL DISTRIBUTION WIDTH 15.7 % (9.6-15.2)
[2019-01-16 05:47] LABS: ANION GAP 8 mmol/L (5-15); CALCIUM 8.7 mg/dL (8.5-10.1); CHLORIDE 102 mmol/L (98-107)
[2019-01-16 05:48] LABS: CREATININE 1.62 mg/dL (0.55-1.02)
[2019-01-16] MEDS ORDERED: SODIUM CHLORIDE 0.9% 1,000ML IVBOLUS ONE (06:30)
[2019-01-16] MEDS: OXYcodone IR 5MG TABLET PO PRN ×3 (06:40→22:48)
[2019-01-16] MEDS: HEPARIN 5,000 UNITS/ML, 1ML SQ SCH ×3 (06:41→22:48)
[2019-01-16] MEDS: INSULIN LISPRO 100 UNITS/ML, PEN SQ-INSULIN SCH ×4 (07:00→22:49)
[2019-01-16] MEDS: IBUPROFEN 800 MG TABLET PO SCH ×4 (08:05→22:48)
[2019-01-16 08:08] VITALS: BP 124/67
[2019-01-16 13:23] VITALS: BP 131/69
[2019-01-16] MEDS: ONDANSETRON 2MG/ML, 2ML IVPush PRN ×2 (16:05→22:54)
[2019-01-16 18:09] VITALS: BP 172/85
[2019-01-16 19:02] VITALS: BP 170/78
[2019-01-16] MEDS: LABETALOL 5 MG/ML SYRINGE IV PRN (19:04)
[2019-01-17 01:44] VITALS: BP 147/86
[2019-01-17 03:44] LABS: MEAN CORPUSCULAR HEMOGLOBIN 29.5 pg (27.0-34.8); MEAN CORPUSCULAR HGB CONC 32.4 g/dL (32.4-35.8); MEAN PLATELET VOLUME 9.9 fL (7.4-10.4); PLATELET COUNT 171 x10^3/uL (130-400); RED BLOOD COUNT 4.83 x10^6/uL (3.82-5.3); RED CELL DISTRIBUTION WIDTH 15.3 % (9.6-15.2)
[2019-01-17 03:59] LABS: BASOPHILS % (AUTO) 0 % (0-1); EOSINOPHILS # (AUTO) 0.01 x10^3/uL (0-0.4); EOSINOPHILS % (AUTO) 0 % (1-7); LYMPHOCYTES # (AUTO) 0.47 x10^3/uL (1-3.4); LYMPHOCYTES % (AUTO) 5 % (22-44); MD SCAN; MONOCYTES # (AUTO) 0.37 x10^3/uL (0.2-0.8); MONOCYTES % (AUTO) 4 % (2-9); NEUTROPHILS # (AUTO) 9.26 x10^3/uL (1.8-6.8); NEUTROPHILS % (AUTO) 92 % (42-75)
[2019-01-17 04:12] LABS: ANION GAP 9 mmol/L (5-15); CALCIUM 9.1 mg/dL (8.5-10.1); CHLORIDE 106 mmol/L (98-107); CREATININE 1.26 mg/dL (0.55-1.02)
[2019-01-17] MEDS: ONDANSETRON 2MG/ML, 2ML IVPush PRN (08:04)
[2019-01-17] MEDS: HEPARIN 5,000 UNITS/ML, 1ML SQ SCH ×3 (08:05→23:44)
[2019-01-17 08:20] VITALS: BP_SYST 162; BP_SYST 172; BP_DIAS 70; BP_DIAS 71
[2019-01-17] MEDS: INSULIN LISPRO 100 UNITS/ML, PEN SQ-INSULIN SCH ×4 (08:55→23:57)
[2019-01-17] MEDS: D5%-0.45NACL+KCL 20MEQ 1,000 ML IV SCH ×2 (08:56→10:00)
[2019-01-17] MEDS: IBUPROFEN 800 MG TABLET PO SCH ×3 (09:58→23:43)
[2019-01-17 12:35] VITALS: BP 90/59
[2019-01-17 12:54] VITALS: BP 122/66
[2019-01-17 21:11] VITALS: BP 136/75
[2019-01-17] MEDS: ATORVASTATIN 80 MG TABLET PO SCH (23:43)
[2019-01-18] MEDS: D5%-0.45NACL+KCL 20MEQ 1,000 ML IV SCH ×3 (00:06→21:52)
[2019-01-18 02:10] VITALS: BP 134/79
[2019-01-18 04:20] LABS: ANION GAP 6 mmol/L (5-15); CALCIUM 9.2 mg/dL (8.5-10.1); CHLORIDE 109 mmol/L (98-107); CREATININE 1.17 mg/dL (0.55-1.02)
[2019-01-18 04:33] LABS: BASOPHILS # (AUTO) 0.01 x10^3/uL (0-0.1); BASOPHILS % (AUTO) 0 % (0-1); EOSINOPHILS # (AUTO) 0.37 x10^3/uL (0-0.4); EOSINOPHILS % (AUTO) 4 % (1-7); LYMPHOCYTES # (AUTO) 1.47 x10^3/uL (1-3.4); LYMPHOCYTES % (AUTO) 15 % (22-44); MD NO; MEAN CORPUSCULAR HEMOGLOBIN 28.8 pg (27.0-34.8); MEAN CORPUSCULAR HGB CONC 31.4 g/dL (32.4-35.8); MEAN CORPUSCULAR VOLUME 91.5 fL (80-100); MEAN PLATELET VOLUME 10.1 fL (7.4-10.4); MONOCYTES # (AUTO) 0.88 x10^3/uL (0.2-0.8); MONOCYTES % (AUTO) 9 % (2-9); NEUTROPHILS # (AUTO) 6.91 x10^3/uL (1.8-6.8); NEUTROPHILS % (AUTO) 72 % (42-75); PLATELET COUNT 163 x10^3/uL (130-400); RED BLOOD COUNT 4.45 x10^6/uL (3.82-5.3); RED CELL DISTRIBUTION WIDTH 15.4 % (9.6-15.2)
[2019-01-18 06:50] VITALS: BP 125/78
[2019-01-18] MEDS: HEPARIN 5,000 UNITS/ML, 1ML SQ SCH ×3 (07:41→23:30)
[2019-01-18] MEDS: INSULIN LISPRO 100 UNITS/ML, PEN SQ-INSULIN SCH ×4 (07:42→21:00)
[2019-01-18] MEDS: OMEPRAZOLE 20 MG CAPSULE.DR PO SCH (08:24)
[2019-01-18] MEDS: LINAGLIPTIN 5 MG TAB PO SCH (08:24)
[2019-01-18] MEDS: IBUPROFEN 800 MG TABLET PO SCH ×3 (08:24→22:43)
[2019-01-18 14:00] VITALS: BP 95/56
[2019-01-18 19:23] VITALS: BP 135/58
[2019-01-18] MEDS: ATORVASTATIN 80 MG TABLET PO SCH (22:43)
[2019-01-19 01:30] VITALS: BP 163/79
[2019-01-19 07:00] VITALS: BP 145/77
[2019-01-19] MEDS: INSULIN LISPRO 100 UNITS/ML, PEN SQ-INSULIN SCH ×4 (07:00→22:14)
[2019-01-19] MEDS: OMEPRAZOLE 20 MG CAPSULE.DR PO SCH (07:59)
[2019-01-19] MEDS: LINAGLIPTIN 5 MG TAB PO SCH (07:59)
[2019-01-19] MEDS: HEPARIN 5,000 UNITS/ML, 1ML SQ SCH ×3 (07:59→22:14)
[2019-01-19] MEDS: IBUPROFEN 800 MG TABLET PO SCH ×3 (07:59→22:14)
[2019-01-19] MEDS: D5%-0.45NACL+KCL 20MEQ 1,000 ML IV SCH ×2 (09:00→19:28)
[2019-01-19 12:03] VITALS: BP 119/64
[2019-01-19 20:32] VITALS: BP 159/69
[2019-01-19] MEDS: ATORVASTATIN 80 MG TABLET PO SCH (22:14)
[2019-01-20 03:29] VITALS: BP 164/74
[2019-01-20] MEDS: D5%-0.45NACL+KCL 20MEQ 1,000 ML IV SCH (05:00)
[2019-01-20] MEDS: INSULIN LISPRO 100 UNITS/ML, PEN SQ-INSULIN SCH (07:00)
[2019-01-20 07:07] VITALS: BP 166/83
[2019-01-20] MEDS: IBUPROFEN 800 MG TABLET PO SCH (07:57)
[2019-01-20] MEDS: LINAGLIPTIN 5 MG TAB PO SCH (07:57)
[2019-01-20] MEDS: OMEPRAZOLE 20 MG CAPSULE.DR PO SCH (07:58)
[2019-01-20] MEDS: HEPARIN 5,000 UNITS/ML, 1ML SQ SCH (07:58)
[2019-01-20] MEDS ORDERED: OXYC-302 PO (08:50)
== END 2019-01-20 09:30 | disposition home or self-care (01) | DRG 329 ==
LOC: ORIP 01-15 05:51 → EDSTATUS 01-15 08:00 → 4NOR 01-15 11:28 → DCLOUNGE 01-20 09:15
PROVIDERS: ADMIT Surgery; ATTEND Surgery
PROC: 0DBB0ZZ Excision of Ileum, Open Approach (ICD-10-PCS; principal; 2019-01-15 08:00)
DX: Z43.2 Encounter for attention to ileostomy (principal); N17.0 Acute kidney failure with tubular necrosis; K50.10 Crohn's disease of large intestine without complications; E11.9 Type 2 diabetes mellitus without complications; E78.00 Pure hypercholesterolemia, unspecified; E78.5 Hyperlipidemia, unspecified; I25.10 Atherosclerotic heart disease of native coronary artery without angina pectoris; K21.9 Gastro-esophageal reflux disease without esophagitis; I10 Essential (primary) hypertension; Z90.49 Acquired absence of other specified parts of digestive tract; Z82.49 Family history of ischemic heart disease and other diseases of the circulatory system; Z88.2 Allergy status to sulfonamides; Z83.3 Family history of diabetes mellitus; Z80.1 Family history of malignant neoplasm of trachea, bronchus and lung; Z95.5 Presence of coronary angioplasty implant and graft
CPT/HCPCS: 36415; 80048; 82962; 85025; 88304; G0378; J0131; J1100; J1644; J2250; J2405; J2704; J2710; J2795; J3010; J1815; J2370; J3480; J3490; J7030; J7120

== ENCOUNTER → 2019-01-01 | Outpatient (CLI) | payer MEDICARE | END | disposition home or self-care (01) | LOC: WOUND 08:01 | PROVIDERS: ATTEND Internal Medicine | DX: Z93.2 Ileostomy status (principal); I13.10 Hypertensive heart and chronic kidney disease without heart failure, with stage 1 through stage 4 chronic kidney disease, or unspecified chronic kidney disease; E11.22 Type 2 diabetes mellitus with diabetic chronic kidney disease; N18.9 Chronic kidney disease, unspecified; E78.2 Mixed hyperlipidemia; I25.2 Old myocardial infarction; E78.00 Pure hypercholesterolemia, unspecified; I25.10 Atherosclerotic heart disease of native coronary artery without angina pectoris; Z88.2 Allergy status to sulfonamides; Z87.891 Personal history of nicotine dependence; Z95.5 Presence of coronary angioplasty implant and graft; Z90.49 Acquired absence of other specified parts of digestive tract | CPT/HCPCS: G0463 ==

== ENCOUNTER 2019-01-08 09:05 | Outpatient (CLI) | payer MEDICARE ==
[~2019-01-08 09:05] MED LIST changes: -HYDR-3237 PO
[2019-01-08] MEDS ORDERED: HYDR-3237 PO (09:45)
== END 2019-01-08 23:59 | disposition home or self-care (01) ==
LOC: STAR 09:05
PROVIDERS: ATTEND Surgery
DX: Z01.818 Encounter for other preprocedural examination (principal); I21.9 Acute myocardial infarction, unspecified; Z93.2 Ileostomy status
CPT/HCPCS: 93005

== ENCOUNTER → 2019-01-08 | Outpatient (CLI) | payer MEDICARE ==
[~2019-01-08] MED LIST changes: +HYDR-3237 PO
== END | disposition home or self-care (01) ==
LOC: WOUND 08:11
PROVIDERS: ATTEND Internal Medicine
DX: Z93.2 Ileostomy status (principal); I12.9 Hypertensive chronic kidney disease with stage 1 through stage 4 chronic kidney disease, or unspecified chronic kidney disease; E11.22 Type 2 diabetes mellitus with diabetic chronic kidney disease; N18.2 Chronic kidney disease, stage 2 (mild); E78.2 Mixed hyperlipidemia; I25.2 Old myocardial infarction; E78.00 Pure hypercholesterolemia, unspecified; I25.10 Atherosclerotic heart disease of native coronary artery without angina pectoris; Z88.2 Allergy status to sulfonamides; Z87.891 Personal history of nicotine dependence; Z95.5 Presence of coronary angioplasty implant and graft; Z90.49 Acquired absence of other specified parts of digestive tract
CPT/HCPCS: G0463

== ENCOUNTER → 2019-07-09 | Outpatient (CLI) | payer MEDICARE ==
[~2019-07-09] MED LIST changes: +HYDR-3237 PO; -MAGN400T7 PO; +MAGN400T9 PO
[2019-07-09 12:58] LABS: BASOPHILS # (AUTO) 0.02 x10^3/uL (0-0.1); BASOPHILS % (AUTO) 0 % (0-1); EOSINOPHILS # (AUTO) 0.13 x10^3/uL (0-0.4); EOSINOPHILS % (AUTO) 2 % (1-7); LYMPHOCYTES # (AUTO) 1.67 x10^3/uL (1-3.4); LYMPHOCYTES % (AUTO) 26 % (22-44); MD NO; MEAN CORPUSCULAR HEMOGLOBIN 28.8 pg (27.0-34.8); MEAN CORPUSCULAR HGB CONC 32.3 g/dL (32.4-35.8); MEAN CORPUSCULAR VOLUME 89.2 fL (80-100); MEAN PLATELET VOLUME 10.2 fL (7.4-10.4); MONOCYTES # (AUTO) 0.44 x10^3/uL (0.2-0.8); MONOCYTES % (AUTO) 7 % (2-9); NEUTROPHILS # (AUTO) 4.12 x10^3/uL (1.8-6.8); NEUTROPHILS % (AUTO) 65 % (42-75); PLATELET COUNT 157 x10^3/uL (130-400); RED BLOOD COUNT 5.41 x10^6/uL (3.82-5.3); RED CELL DISTRIBUTION WIDTH 17.5 % (9.6-15.2)
[2019-07-09 13:00] LABS: MICROSCOPIC AUTO
[2019-07-09 13:10] LABS: ALANINE AMINOTRANSFERASE 80 U/L (12-78); ALBUMIN 3.9 g/dL (3.4-5.0); ANION GAP 4 mmol/L (5-15); CALCIUM 9.3 mg/dL (8.5-10.1); CHLORIDE 105 mmol/L (98-107); CHOLESTEROL, TOTAL 163 mg/dL (140-239); CREATININE 1.21 mg/dL (0.55-1.02)
[2019-07-09 13:13] LABS: ALKALINE PHOSPHATASE 106 U/L (45-117); BILIRUBIN,TOTAL 0.5 mg/dL (0.2-1.0); CHOL/HDL RATIO 2.4; HDL CHOL % 42 % (28-40); HDL CHOLESTEROL (DIRECT) 68 mg/dL (40-60); LDL CHOLESTEROL,CALCULATED 56 mg/dL (54-169); LDL/HDL RATIO 0.8 (0.5-3.0); TOTAL PROTEIN 8.1 g/dL (6.4-8.2); TRIGLYCERIDES 195 mg/dL (50-200); VLDL CHOLESTEROL 39 mg/dL (0-25)
[2019-07-09 14:21] LABS: HEMOGLOBIN A1C 7.5 % (4.2-6.3)
== END | disposition home or self-care (01) ==
LOC: CFH 09:13
PROVIDERS: ATTEND Internal Medicine Cardiovascular Disease
DX: C18.9 Malignant neoplasm of colon, unspecified (principal); E11.29 Type 2 diabetes mellitus with other diabetic kidney complication; E11.42 Type 2 diabetes mellitus with diabetic polyneuropathy; E11.65 Type 2 diabetes mellitus with hyperglycemia; E11.69 Type 2 diabetes mellitus with other specified complication; E66.3 Overweight; E78.2 Mixed hyperlipidemia; E83.52 Hypercalcemia; F11.20 Opioid dependence, uncomplicated; G25.0 Essential tremor; E11.21 Type 2 diabetes mellitus with diabetic nephropathy; I10 Essential (primary) hypertension; Z88.2 Allergy status to sulfonamides; Z87.891 Personal history of nicotine dependence; I63.9 Cerebral infarction, unspecified; E11.9 Type 2 diabetes mellitus without complications
CPT/HCPCS: 36415; 80053; 80061; 81001; 82043; 82306; 82570; 83036; 85025

== ENCOUNTER → 2019-07-24 | Outpatient (CLI) | payer MEDICARE | END | disposition home or self-care (01) | LOC: RAD 12:31 | PROVIDERS: ATTEND Internal Medicine | DX: M47.817 Spondylosis without myelopathy or radiculopathy, lumbosacral region (principal); M48.07 Spinal stenosis, lumbosacral region; M25.78 Osteophyte, vertebrae | CPT/HCPCS: 72110 ==

== ENCOUNTER 2019-08-14 09:38 | Outpatient (CLI) | payer MEDICARE ==
[2019-08-14 12:39] LABS: MICROSCOPIC NOT IND
[2019-08-14 12:55] LABS: BASOPHILS # (AUTO) 0.02 x10^3/uL (0-0.1); BASOPHILS % (AUTO) 0 % (0-1); EOSINOPHILS # (AUTO) 0.11 x10^3/uL (0-0.4); EOSINOPHILS % (AUTO) 2 % (1-7); LYMPHOCYTES # (AUTO) 1.81 x10^3/uL (1-3.4); LYMPHOCYTES % (AUTO) 25 % (22-44); MD NO; MEAN CORPUSCULAR HEMOGLOBIN 29.4 pg (27.0-34.8); MEAN CORPUSCULAR VOLUME 91.8 fL (80-100); MEAN PLATELET VOLUME 9.7 fL (7.4-10.4); MONOCYTES # (AUTO) 0.46 x10^3/uL (0.2-0.8); MONOCYTES % (AUTO) 6 % (2-9); NEUTROPHILS # (AUTO) 4.95 x10^3/uL (1.8-6.8); NEUTROPHILS % (AUTO) 67 % (42-75); PLATELET COUNT 180 x10^3/uL (130-400); RED BLOOD COUNT 5.55 x10^6/uL (3.82-5.3); RED CELL DISTRIBUTION WIDTH 16.7 % (9.6-15.2)
[2019-08-14 12:57] LABS: CHLORIDE 106 mmol/L (98-107)
[2019-08-14 13:11] LABS: ALANINE AMINOTRANSFERASE 74 U/L (12-78); ALKALINE PHOSPHATASE 100 U/L (45-117); ANION GAP 7 mmol/L (5-15); BILIRUBIN,TOTAL 0.6 mg/dL (0.2-1.0); CHOL/HDL RATIO 2.6; CHOLESTEROL, TOTAL 180 mg/dL (140-239); CREATININE 1.54 mg/dL (0.55-1.02); HDL CHOL % 38 % (28-40); HDL CHOLESTEROL (DIRECT) 69 mg/dL (40-60); LDL CHOLESTEROL,CALCULATED 68 mg/dL (54-169); TOTAL PROTEIN 8.4 g/dL (6.4-8.2); TRIGLYCERIDES 213 mg/dL (50-200); VLDL CHOLESTEROL 43 mg/dL (0-25)
== END 2019-08-14 23:59 | disposition home or self-care (01) ==
LOC: CFH 09:38
PROVIDERS: ATTEND Internal Medicine Nephrology
DX: I12.9 Hypertensive chronic kidney disease with stage 1 through stage 4 chronic kidney disease, or unspecified chronic kidney disease (principal); N18.3 Chronic kidney disease, stage 3 (moderate); E11.9 Type 2 diabetes mellitus without complications; M48.02 Spinal stenosis, cervical region; M54.5 Low back pain; N39.0 Urinary tract infection, site not specified
CPT/HCPCS: 36415; 80053; 80061; 81003; 82306; 82310; 82570; 83735; 83970; 84100; 84156; 84550; 85025; 87086

== ENCOUNTER → 2019-10-09 | Outpatient (CLI) | payer MEDICARE ==
[~2019-10-09] MED LIST changes: +SIMV40TA20 PO; -SIMV40TA3 PO
== END | disposition home or self-care (01) ==
LOC: RAD 11:35
PROVIDERS: ATTEND Registered Nurse
DX: M51.16 Intervertebral disc disorders with radiculopathy, lumbar region (principal); M48.07 Spinal stenosis, lumbosacral region; N28.1 Cyst of kidney, acquired; E11.9 Type 2 diabetes mellitus without complications; K21.9 Gastro-esophageal reflux disease without esophagitis; Z88.2 Allergy status to sulfonamides
CPT/HCPCS: 72148

== ENCOUNTER → 2019-10-14 | Outpatient (CLI) | payer MEDICARE ==
[2019-10-14 13:09] LABS: ALBUMIN 3.8 g/dL (3.4-5.0); ANION GAP 6 mmol/L (5-15); CALCIUM 9.1 mg/dL (8.5-10.1); CHLORIDE 103 mmol/L (98-107)
[2019-10-14 13:10] LABS: CALCIUM 9.1 mg/dL (8.5-10.1)
[2019-10-14 13:14] LABS: MICROSCOPIC INDICATED
[2019-10-14 13:15] LABS: BASOPHILS # (AUTO) 0.04 x10^3/uL (0-0.1); BASOPHILS % (AUTO) 1 % (0-1); EOSINOPHILS # (AUTO) 0.13 x10^3/uL (0-0.4); EOSINOPHILS % (AUTO) 2 % (1-7); LYMPHOCYTES # (AUTO) 2.04 x10^3/uL (1-3.4); LYMPHOCYTES % (AUTO) 30 % (22-44); MD NO; MEAN CORPUSCULAR HEMOGLOBIN 30.2 pg (27.0-34.8); MEAN CORPUSCULAR HGB CONC 32.3 g/dL (32.4-35.8); MEAN CORPUSCULAR VOLUME 93.6 fL (80-100); MEAN PLATELET VOLUME 9.7 fL (7.4-10.4); MONOCYTES % (AUTO) 9 % (2-9); NEUTROPHILS # (AUTO) 3.94 x10^3/uL (1.8-6.8); NEUTROPHILS % (AUTO) 58 % (42-75); PLATELET COUNT 171 x10^3/uL (130-400); RED BLOOD COUNT 5.41 x10^6/uL (3.82-5.3); RED CELL DISTRIBUTION WIDTH 15.1 % (9.6-15.2)
[2019-10-14 13:17] LABS: ALANINE AMINOTRANSFERASE 90 U/L (12-78); ALKALINE PHOSPHATASE 94 U/L (45-117); BILIRUBIN,TOTAL 0.6 mg/dL (0.2-1.0); CREATININE 1.38 mg/dL (0.55-1.02); TOTAL PROTEIN 7.7 g/dL (6.4-8.2)
== END | disposition home or self-care (01) ==
LOC: CFH 10:45
PROVIDERS: ATTEND Nurse Practitioner Gerontology
DX: I12.9 Hypertensive chronic kidney disease with stage 1 through stage 4 chronic kidney disease, or unspecified chronic kidney disease (principal); E11.22 Type 2 diabetes mellitus with diabetic chronic kidney disease; N18.3 Chronic kidney disease, stage 3 (moderate); M54.5 Low back pain; N39.0 Urinary tract infection, site not specified; M48.02 Spinal stenosis, cervical region; M54.16 Radiculopathy, lumbar region
CPT/HCPCS: 36415; 72120; 80053; 81001; 82306; 82310; 82570; 83036; 83735; 83970; 84100; 84156; 84550; 85025

== ENCOUNTER → 2019-11-12 | Outpatient (CLI) | payer MEDICARE ==
[2019-11-12 13:17] LABS: ANION GAP 6 mmol/L (5-15); CALCIUM 9.8 mg/dL (8.5-10.1); CHLORIDE 105 mmol/L (98-107); CREATININE 1.56 mg/dL (0.55-1.02)
== END | disposition home or self-care (01) ==
LOC: CFH 10:30
PROVIDERS: ATTEND Internal Medicine Cardiovascular Disease
DX: I25.10 Atherosclerotic heart disease of native coronary artery without angina pectoris (principal); E11.9 Type 2 diabetes mellitus without complications; I10 Essential (primary) hypertension; E78.2 Mixed hyperlipidemia
CPT/HCPCS: 36415; 80048; 83036

== ENCOUNTER → 2019-11-19 | Outpatient (CLI) | payer MEDICARE | END | disposition home or self-care (01) | LOC: CVU 10:01 | PROVIDERS: ATTEND Internal Medicine Cardiovascular Disease | DX: I65.23 Occlusion and stenosis of bilateral carotid arteries (principal) | CPT/HCPCS: 93880 ==

== ENCOUNTER 2020-02-04 08:33 | Outpatient (CLI) | payer MEDICARE ==
[2020-02-04 12:54] LABS: BASOPHILS # (AUTO) 0.03 x10^3/uL (0-0.1); BASOPHILS % (AUTO) 0 % (0-1); CHLORIDE 105 mmol/L (98-107); EOSINOPHILS # (AUTO) 0.11 x10^3/uL (0-0.4); EOSINOPHILS % (AUTO) 2 % (1-7); LYMPHOCYTES # (AUTO) 1.65 x10^3/uL (1-3.4); LYMPHOCYTES % (AUTO) 24 % (22-44); MD NO; MEAN CORPUSCULAR HEMOGLOBIN 30.1 pg (27.0-34.8); MEAN CORPUSCULAR HGB CONC 32.4 g/dL (32.4-35.8); MEAN CORPUSCULAR VOLUME 92.9 fL (80-100); MEAN PLATELET VOLUME 10.9 fL (7.4-10.4); MONOCYTES # (AUTO) 0.58 x10^3/uL (0.2-0.8); MONOCYTES % (AUTO) 9 % (2-9); NEUTROPHILS # (AUTO) 4.48 x10^3/uL (1.8-6.8); NEUTROPHILS % (AUTO) 65 % (42-75); PLATELET COUNT 154 x10^3/uL (130-400); RED BLOOD COUNT 5.48 x10^6/uL (3.82-5.3); RED CELL DISTRIBUTION WIDTH 14.9 % (9.6-15.2)
[2020-02-04 13:00] LABS: ALANINE AMINOTRANSFERASE 77 U/L (12-78); ALBUMIN 3.7 g/dL (3.4-5.0); ALKALINE PHOSPHATASE 97 U/L (45-117); BILIRUBIN,TOTAL 0.7 mg/dL (0.2-1.0); CALCIUM 9.5 mg/dL (8.5-10.1); CREATININE 1.55 mg/dL (0.55-1.02)
[2020-02-04 13:05] LABS: MICROSCOPIC INDICATED
[2020-02-04 13:12] LABS: ANION GAP 5 mmol/L (5-15)
== END 2020-02-04 23:59 | disposition home or self-care (01) ==
LOC: CFH 08:33
PROVIDERS: ATTEND Neurological Surgery
DX: I12.9 Hypertensive chronic kidney disease with stage 1 through stage 4 chronic kidney disease, or unspecified chronic kidney disease (principal); E11.22 Type 2 diabetes mellitus with diabetic chronic kidney disease; N18.3 Chronic kidney disease, stage 3 (moderate); R80.9 Proteinuria, unspecified
CPT/HCPCS: 36415; 80053; 81001; 82570; 83735; 84100; 84156; 84550; 85025

== ENCOUNTER 2020-02-13 08:25 | Emergency (ER) | payer MEDICARE ==
[~2020-02-13] VITALS: Ht 160 cm; Wt 79.5 kg
[2020-02-13] MEDS ORDERED: MAGNESIUM PO (09:12)
[2020-02-13] MEDS ORDERED: ASPI-496 PO (09:12)
[2020-02-13] MEDS ORDERED: FOLI1TAB5 PO (09:12)
[2020-02-13] MEDS ORDERED: CYAN-10 PO (09:12)
[2020-02-13] MEDS ORDERED: BIOT5000 PO (09:12)
[2020-02-13] MEDS ORDERED: THIA250T7 PO (09:12)
[2020-02-13] MEDS ORDERED: VITAMIN D (09:12)
--- NOTE | 2020-02-13 09:13 | NUR ---
Pt presents to ED with c/o right knee pain and swelling starting four days ago. 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 Pt states, "it started hurting and became swollen and red, it went away, but then it came back. I took my pain medicine but it didn't help." Pt denies trauma or injury to right knee. NADN. No other needs expressed. Pt resting on gurney connected to NIBP cuff and continous pulse ox monitor. Bedside rails up x 2 for safety measures and call light within reach.
[2020-02-13 09:17] VITALS: BP 152/76
[2020-02-13] MEDS ORDERED: LIDOCAINE-MPF 1%, 5ML ONE (09:54)
--- NOTE | 2020-02-13 10:55 | NUR ---
REPORT RECEIVED FROM TETO BRYAN. ASSUMING CARE AT THIS TIME.
--- NOTE | 2020-02-13 11:58 | NUR ---
LAB WILL POST SYNOVIAL FLUID RESULTS "SHORTLY".
--- NOTE | 2020-02-13 12:37 | NUR ---
LAB IS "WORKING ON THE SYNOVIAL FLUID NOW".
--- NOTE | 2020-02-13 12:50 | NUR ---
ALL RESULTS ARE BACK AT THIS TIME. CHART UP FOR RECHECK.
--- NOTE | 2020-02-13 12:55 | NUR ---
MD AT BEDSIDE TO UPDATE PT ON POC.
== END 2020-02-13 13:18 | disposition home or self-care (01) ==
LOC: ED 09:21
DX: M25.561 Pain in right knee (principal); I25.10 Atherosclerotic heart disease of native coronary artery without angina pectoris; E11.9 Type 2 diabetes mellitus without complications; E78.5 Hyperlipidemia, unspecified; I10 Essential (primary) hypertension; I25.2 Old myocardial infarction; Z98.61 Coronary angioplasty status; R93.7 Abnormal findings on diagnostic imaging of other parts of musculoskeletal system
CPT/HCPCS: 20610; 29505; 85810; 87070; 87205; 89050; 89060; 99284

== ENCOUNTER → 2020-03-03 | Outpatient (CLI) | payer MEDICARE ==
[~2020-03-03] MED LIST changes: +BIOT5000 PO; +CHOL10003 PO; +CYAN-10 PO; +FOLI1TAB5 PO; +MAGNESIUM PO; +THIA250T7 PO; +VIT1CAPS44 PO; +VITAMIN D; +jardiance PO
[2020-03-03 10:13] LABS: MICROSCOPIC NOT IND
[2020-03-03 10:18] LABS: BASOPHILS # (AUTO) 0.04 x10^3/uL (0-0.1); BASOPHILS % (AUTO) 1 % (0-1); EOSINOPHILS # (AUTO) 0.16 x10^3/uL (0-0.4); EOSINOPHILS % (AUTO) 2 % (1-7); LYMPHOCYTES # (AUTO) 2.36 x10^3/uL (1-3.4); LYMPHOCYTES % (AUTO) 31 % (22-44); MD NO; MEAN CORPUSCULAR HEMOGLOBIN 30.2 pg (27.0-34.8); MEAN CORPUSCULAR HGB CONC 32.5 g/dL (32.4-35.8); MEAN CORPUSCULAR VOLUME 92.9 fL (80-100); MEAN PLATELET VOLUME 10.4 fL (7.4-10.4); MONOCYTES # (AUTO) 0.64 x10^3/uL (0.2-0.8); MONOCYTES % (AUTO) 8 % (2-9); NEUTROPHILS # (AUTO) 4.49 x10^3/uL (1.8-6.8); NEUTROPHILS % (AUTO) 58 % (42-75); PLATELET COUNT 156 x10^3/uL (130-400); RED BLOOD COUNT 5.39 x10^6/uL (3.82-5.3); RED CELL DISTRIBUTION WIDTH 14.8 % (9.6-15.2)
[2020-03-03 10:23] LABS: ALANINE AMINOTRANSFERASE 64 U/L (12-78); ALBUMIN 3.8 g/dL (3.4-5.0); ANION GAP 4 mmol/L (5-15); CALCIUM 10.2 mg/dL (8.5-10.1); CHLORIDE 105 mmol/L (98-107)
[2020-03-03 10:26] LABS: ALKALINE PHOSPHATASE 95 U/L (45-117); BILIRUBIN,TOTAL 0.5 mg/dL (0.2-1.0); CREATININE 1.54 mg/dL (0.55-1.02)
[2020-03-03 10:28] LABS: PROTHROMBIN TIME 10.6 Seconds (9.6-11.5)
== END | disposition home or self-care (01) ==
LOC: STAR 08:51
PROVIDERS: ATTEND Neurological Surgery
DX: Z01.818 Encounter for other preprocedural examination (principal); M48.061 Spinal stenosis, lumbar region without neurogenic claudication; I25.2 Old myocardial infarction
CPT/HCPCS: 36415; 80053; 81003; 85025; 85610; 85730; 93005

== ENCOUNTER → 2020-03-10 | Outpatient (CLI) | payer MEDICARE | END | disposition home or self-care (01) | LOC: RAD 08:50 | PROVIDERS: ATTEND Nurse Practitioner Critical Care Medicine | DX: I67.1 Cerebral aneurysm, nonruptured (principal) | CPT/HCPCS: 70544; 70547 ==

== ENCOUNTER 2020-03-11 07:04 | Inpatient (IN) | payer MEDICARE, OTHER ==
[~2020-03-11] VITALS: Ht 160 cm; Wt 88.1 kg
[~2020-03-11 07:04] MED LIST changes: +BACITRACIN 50,000 UNIT ONE; +BUPIVACAINE/PF-EPI 0.5% 1:200K ONE; +THROMBIN 5,000 UNIT VIAL TP ONE
[2020-03-11] MEDS ORDERED: FENTANYL PF 250 MCG/5ML ONE ×2 (08:02→13:23)
[2020-03-11] MEDS ORDERED: CEFAZOLIN 1,000 MG ONE (08:05)
[2020-03-11] MEDS ORDERED: DEXAMETHASONE 4 MG/ML, 1ML ONE (08:05)
[2020-03-11] MEDS ORDERED: ONDANSETRON 2MG/ML, 2ML ONE (08:05)
[2020-03-11] MEDS ORDERED: ROCURONIUM 10MG/ML,5ML ONE ×2 (08:05→12:36)
[2020-03-11] MEDS ORDERED: GLYCOPYRROLATE 0.2MG/1ML, 5ML ONE (08:05)
[2020-03-11] MEDS ORDERED: PROPOFOL 10 MG/ML, 20ML ONE (08:05)
[2020-03-11] MEDS ORDERED: NEOSTIGMINE 1 MG/ML, 10ML ONE (08:05)
[2020-03-11] MEDS ORDERED: LACTATED RINGERS 1,000 ML IV SCH (08:18)
[2020-03-11] MEDS ORDERED: GABAPENTIN 300 MG CAPSULE PO ONE (08:30)
[2020-03-11] MEDS ORDERED: CHLORHEXIDINE 15 ML UDC MM ONE (08:30)
[2020-03-11] MEDS ORDERED: ACETAMINOPHEN 500 MG TABLET PO ONE (08:30)
[2020-03-11] MEDS ORDERED: SODIUM CHLORIDE 0.9% 1,000 ML IV SCH (08:54)
[2020-03-11] MEDS ORDERED: HALOPERIDOL 5 MG/ML IV PRN (10:30)
[2020-03-11] MEDS ORDERED: FENTANYL PF 100 MCG/2ML IV PRN (10:30)
[2020-03-11] MEDS ORDERED: LABETALOL 5MG/ML, 20ML IV PRN ×2 (10:30→17:00)
[2020-03-11] MEDS ORDERED: PROMETHAZINE 25 MG/ML, 1ML IVPush PRN (10:30)
[2020-03-11] MEDS ORDERED: HYDROmorphone 1 MG/ML, 1ML INJ IVPush PRN (10:30)
[2020-03-11] MEDS ORDERED: OXYcodone 5 MG/5 ML ORAL.SOL UDC PO PRN (10:30)
[2020-03-11] MEDS ORDERED: morphine SULFATE 10 MG/ML, 1ML IVPush PRN (10:30)
[2020-03-11] MEDS ORDERED: hydrALAzine 20 MG/ML, 1ML IV PRN (10:30)
[2020-03-11] MEDS ORDERED: MEPERIDINE/PF 25MG/0.5ML IVPush PRN (10:30)
[2020-03-11] MEDS ORDERED: PHENYLEPHRINE 10 MG/ML ONE (10:38)
[2020-03-11] MEDS ORDERED: VANCOMYCIN 1,000 MG ONE (13:42)
[2020-03-11 15:45] VITALS: BP 117/73
[2020-03-11] MEDS ORDERED: DIPHENHYDRAMINE 25 MG CAPSULE PO PRN ×2 (16:30→20:30)
[2020-03-11] MEDS ORDERED: DIPHENHYDRAMINE 50 MG/ML, 1ML IM PRN ×2 (17:00→21:00)
[2020-03-11] MEDS ORDERED: CYCLOBENZAPRINE 10 MG TABLET PO PRN (17:00)
[2020-03-11] MEDS ORDERED: BISACODYL 10 MG SUPP PR PRN (17:00)
[2020-03-11] MEDS ORDERED: ONDANSETRON 2MG/ML, 2ML IV PRN (17:00)
[2020-03-11] MEDS ORDERED: MAGNESIUM HYDROXIDE 8%, 30ML UDC PO PRN (17:00)
[2020-03-11] MEDS: CEFAZOLIN PMX 1GM/50ML 50 ML IVPB SCH (18:53)
[2020-03-11 18:58] VITALS: BP 100/65
[2020-03-11] MEDS: NS + 20MEQ KCL 1,000 ML IV SCH (20:16)
[2020-03-11] MEDS: ATORVASTATIN 80 MG TABLET PO SCH (20:16)
[2020-03-12 00:40] VITALS: BP 117/71
[2020-03-12] MEDS: CEFAZOLIN PMX 1GM/50ML 50 ML IVPB SCH (03:08)
[2020-03-12 03:44] VITALS: BP 116/72
[2020-03-12] MEDS: OMEPRAZOLE 20 MG CAPSULE.DR PO SCH (05:52)
[2020-03-12] MEDS: NS + 20MEQ KCL 1,000 ML IV SCH ×2 (05:52→16:00)
[2020-03-12 07:03] LABS: BASOPHILS % (AUTO) 0 % (0-1); EOSINOPHILS # (AUTO) 0.01 x10^3/uL (0-0.4); EOSINOPHILS % (AUTO) 0 % (1-7); LYMPHOCYTES # (AUTO) 1.27 x10^3/uL (1-3.4); LYMPHOCYTES % (AUTO) 11 % (22-44); MD NO; MEAN CORPUSCULAR HEMOGLOBIN 30.1 pg (27.0-34.8); MEAN CORPUSCULAR HGB CONC 32.3 g/dL (32.4-35.8); MEAN PLATELET VOLUME 10.6 fL (7.4-10.4); MONOCYTES # (AUTO) 0.73 x10^3/uL (0.2-0.8); MONOCYTES % (AUTO) 6 % (2-9); NEUTROPHILS # (AUTO) 9.71 x10^3/uL (1.8-6.8); NEUTROPHILS % (AUTO) 83 % (42-75); PLATELET COUNT 148 x10^3/uL (130-400); RED BLOOD COUNT 4.63 x10^6/uL (3.82-5.3); RED CELL DISTRIBUTION WIDTH 15.5 % (9.6-15.2)
[2020-03-12 07:12] LABS: CHLORIDE 111 mmol/L (98-107)
[2020-03-12 07:17] LABS: ANION GAP 7 mmol/L (5-15); CALCIUM 8.7 mg/dL (8.5-10.1); CREATININE 1.58 mg/dL (0.55-1.02)
[2020-03-12 07:39] VITALS: BP 108/69
[2020-03-12] MEDS: FERROUS SULFATE 325 MG TABLET PO SCH (08:41)
[2020-03-12] MEDS: CHOLECALCIFEROL 1,000 UNIT TABLET PO SCH (08:41)
[2020-03-12] MEDS: LINAGLIPTIN 5 MG TAB PO SCH (08:41)
[2020-03-12] MEDS: CYANOCOBALAMIN 1,000 MCG TABLET PO SCH (08:42)
[2020-03-12] MEDS: SENNA/DOCUSATE TABLET PO SCH (08:42)
[2020-03-12] MEDS: MULTIVITAMINS/MINERALS TABLET PO SCH (08:42)
[2020-03-12] MEDS: THIAMINE 100MG TABLET PO SCH (08:42)
[2020-03-12] MEDS: MAGNESIUM OXIDE 400 MG TABLET PO SCH (08:42)
[2020-03-12] MEDS: JARDIANCE 10 MG HOMEMEDPO SCH (08:55)
[2020-03-12] MEDS: PROPRANOLOL 20 MG TABLET PO SCH ×2 (09:00→17:23)
[2020-03-12] MEDS ORDERED: MORPHINE SULFATE 4 MG/ML, 1ML IVPush PRN (09:30)
[2020-03-12] MEDS: HYDROcodone/APAP 10/325 MG TABLET PO PRN (12:50)
[2020-03-12 12:58] VITALS: BP 118/69
[2020-03-12 19:29] VITALS: BP 118/68
[2020-03-12 19:36] VITALS: BP 131/74
[2020-03-12] MEDS: ATORVASTATIN 80 MG TABLET PO SCH ×2 (20:17→20:19)
[2020-03-13 00:46] VITALS: BP 137/74
[2020-03-13] MEDS: NS + 20MEQ KCL 1,000 ML IV SCH ×3 (02:00→22:00)
[2020-03-13] MEDS: HYDROcodone/APAP 10/325 MG TABLET PO PRN ×2 (02:34→19:28)
[2020-03-13 05:34] LABS: BASOPHILS # (AUTO) 0.02 x10^3/uL (0-0.1); BASOPHILS % (AUTO) 0 % (0-1); EOSINOPHILS # (AUTO) 0.07 x10^3/uL (0-0.4); EOSINOPHILS % (AUTO) 1 % (1-7); LYMPHOCYTES # (AUTO) 1.95 x10^3/uL (1-3.4); LYMPHOCYTES % (AUTO) 18 % (22-44); MD NO; MEAN CORPUSCULAR HEMOGLOBIN 30.5 pg (27.0-34.8); MEAN CORPUSCULAR HGB CONC 33.1 g/dL (32.4-35.8); MEAN PLATELET VOLUME 10.7 fL (7.4-10.4); MONOCYTES % (AUTO) 9 % (2-9); NEUTROPHILS # (AUTO) 8.05 x10^3/uL (1.8-6.8); NEUTROPHILS % (AUTO) 73 % (42-75); PLATELET COUNT 121 x10^3/uL (130-400); RED BLOOD COUNT 4.19 x10^6/uL (3.82-5.3)
[2020-03-13 05:38] LABS: ANION GAP 5 mmol/L (5-15); CALCIUM 8.7 mg/dL (8.5-10.1); CHLORIDE 110 mmol/L (98-107); CREATININE 1.19 mg/dL (0.55-1.02)
[2020-03-13 05:50] VITALS: BP 129/68
[2020-03-13] MEDS: PROPRANOLOL 20 MG TABLET PO SCH ×2 (05:51→18:50)
[2020-03-13] MEDS: OMEPRAZOLE 20 MG CAPSULE.DR PO SCH (05:51)
[2020-03-13 07:20] VITALS: BP 151/74
[2020-03-13] MEDS: THIAMINE 100MG TABLET PO SCH (09:05)
[2020-03-13] MEDS: CYANOCOBALAMIN 1,000 MCG TABLET PO SCH (09:06)
[2020-03-13] MEDS: CHOLECALCIFEROL 1,000 UNIT TABLET PO SCH (09:07)
[2020-03-13] MEDS: MULTIVITAMINS/MINERALS TABLET PO SCH (09:08)
[2020-03-13] MEDS: MAGNESIUM OXIDE 400 MG TABLET PO SCH (09:09)
[2020-03-13] MEDS: SENNA/DOCUSATE TABLET PO SCH (09:09)
[2020-03-13] MEDS: LINAGLIPTIN 5 MG TAB PO SCH (09:09)
[2020-03-13] MEDS: JARDIANCE 10 MG HOMEMEDPO SCH ×2 (09:09→15:19)
[2020-03-13] MEDS: FERROUS SULFATE 325 MG TABLET PO SCH (09:09)
[2020-03-13 12:29] VITALS: BP 133/72
[2020-03-13] MEDS: ATORVASTATIN 80 MG TABLET PO SCH (19:29)
[2020-03-13 19:31] VITALS: BP 126/70
[2020-03-14 01:11] VITALS: BP 115/68
[2020-03-14] MEDS: PROPRANOLOL 20 MG TABLET PO SCH ×2 (05:16→17:37)
[2020-03-14] MEDS: OMEPRAZOLE 20 MG CAPSULE.DR PO SCH (05:17)
[2020-03-14 05:18] VITALS: BP 136/68
[2020-03-14 07:11] VITALS: BP 118/62
[2020-03-14] MEDS: NS + 20MEQ KCL 1,000 ML IV SCH ×2 (08:00→16:10)
[2020-03-14] MEDS: LINAGLIPTIN 5 MG TAB PO SCH (08:30)
[2020-03-14] MEDS: JARDIANCE 10 MG HOMEMEDPO SCH (08:30)
[2020-03-14] MEDS: CYANOCOBALAMIN 1,000 MCG TABLET PO SCH (08:30)
[2020-03-14] MEDS: MULTIVITAMINS/MINERALS TABLET PO SCH (08:30)
[2020-03-14] MEDS: THIAMINE 100MG TABLET PO SCH (08:30)
[2020-03-14] MEDS: CHOLECALCIFEROL 1,000 UNIT TABLET PO SCH (08:30)
[2020-03-14] MEDS: CYCLOBENZAPRINE 10 MG TABLET PO SCH ×2 (08:30→16:00)
[2020-03-14] MEDS: FERROUS SULFATE 325 MG TABLET PO SCH (08:30)
[2020-03-14] MEDS: MAGNESIUM OXIDE 400 MG TABLET PO SCH (08:30)
[2020-03-14] MEDS: SENNA/DOCUSATE TABLET PO SCH (08:31)
[2020-03-14] MEDS: HYDROcodone/APAP 10/325 MG TABLET PO PRN ×3 (09:43→23:30)
[2020-03-14 13:22] VITALS: BP 103/63
[2020-03-14 17:37] VITALS: BP 101/66
[2020-03-14 19:23] VITALS: BP 113/60
[2020-03-14] MEDS: ATORVASTATIN 80 MG TABLET PO SCH (21:30)
[2020-03-15 00:51] VITALS: BP 132/76
[2020-03-15] MEDS: NS + 20MEQ KCL 1,000 ML IV SCH ×3 (01:10→23:45)
[2020-03-15] MEDS: OMEPRAZOLE 20 MG CAPSULE.DR PO SCH (05:55)
[2020-03-15] MEDS: PROPRANOLOL 20 MG TABLET PO SCH ×2 (05:55→17:53)
[2020-03-15] MEDS: SENNA/DOCUSATE TABLET PO SCH (08:03)
[2020-03-15] MEDS: HYDROcodone/APAP 10/325 MG TABLET PO PRN ×2 (08:04→21:31)
[2020-03-15] MEDS: MULTIVITAMINS/MINERALS TABLET PO SCH (08:04)
[2020-03-15] MEDS: THIAMINE 100MG TABLET PO SCH (08:04)
[2020-03-15] MEDS: MAGNESIUM OXIDE 400 MG TABLET PO SCH (08:05)
[2020-03-15] MEDS: FERROUS SULFATE 325 MG TABLET PO SCH (08:05)
[2020-03-15] MEDS: LINAGLIPTIN 5 MG TAB PO SCH (08:05)
[2020-03-15] MEDS: CHOLECALCIFEROL 1,000 UNIT TABLET PO SCH (08:05)
[2020-03-15] MEDS: CYANOCOBALAMIN 1,000 MCG TABLET PO SCH (08:05)
[2020-03-15] MEDS: CYCLOBENZAPRINE 10 MG TABLET PO SCH ×4 (08:05→23:45)
[2020-03-15 08:10] VITALS: BP 135/72
[2020-03-15] MEDS: JARDIANCE 10 MG HOMEMEDPO SCH (08:12)
[2020-03-15 08:53] LABS: ANION GAP 6 mmol/L (5-15); CALCIUM 9.3 mg/dL (8.5-10.1); CHLORIDE 105 mmol/L (98-107); CREATININE 1.02 mg/dL (0.55-1.02)
[2020-03-15 08:56] LABS: BASOPHILS # (AUTO) 0.07 x10^3/uL (0-0.1); BASOPHILS % (AUTO) 1 % (0-1); EOSINOPHILS # (AUTO) 0.23 x10^3/uL (0-0.4); EOSINOPHILS % (AUTO) 3 % (1-7); LYMPHOCYTES # (AUTO) 1.51 x10^3/uL (1-3.4); LYMPHOCYTES % (AUTO) 16 % (22-44); MD NO; MEAN CORPUSCULAR HEMOGLOBIN 29.5 pg (27.0-34.8); MEAN CORPUSCULAR HGB CONC 32.1 g/dL (32.4-35.8); MEAN PLATELET VOLUME 9.6 fL (7.4-10.4); MONOCYTES # (AUTO) 0.77 x10^3/uL (0.2-0.8); MONOCYTES % (AUTO) 8 % (2-9); NEUTROPHILS % (AUTO) 72 % (42-75); PLATELET COUNT 160 x10^3/uL (130-400); RED BLOOD COUNT 4.14 x10^6/uL (3.82-5.3); RED CELL DISTRIBUTION WIDTH 14.9 % (9.6-15.2)
[2020-03-15] MEDS: ENOXAPARIN 40 MG/0.4 ML SQ SCH (11:43)
[2020-03-15 13:26] VITALS: BP_SYST 113; BP_SYST 133; BP_DIAS 61
[2020-03-15 19:39] VITALS: BP 158/82
[2020-03-15] MEDS: ATORVASTATIN 80 MG TABLET PO SCH (21:00)
[2020-03-16 01:34] VITALS: BP 105/64
[2020-03-16] MEDS: PROPRANOLOL 20 MG TABLET PO SCH ×2 (06:46→16:39)
[2020-03-16] MEDS: OMEPRAZOLE 20 MG CAPSULE.DR PO SCH (06:46)
[2020-03-16 07:50] VITALS: BP 146/72
[2020-03-16] MEDS: CYCLOBENZAPRINE 10 MG TABLET PO SCH ×2 (08:00→15:56)
[2020-03-16] MEDS: CYANOCOBALAMIN 1,000 MCG TABLET PO SCH (08:58)
[2020-03-16] MEDS: CHOLECALCIFEROL 1,000 UNIT TABLET PO SCH (08:58)
[2020-03-16] MEDS: HYDROcodone/APAP 10/325 MG TABLET PO PRN (08:58)
[2020-03-16] MEDS: LINAGLIPTIN 5 MG TAB PO SCH (08:58)
[2020-03-16] MEDS: SENNA/DOCUSATE TABLET PO SCH (08:59)
[2020-03-16] MEDS: THIAMINE 100MG TABLET PO SCH (08:59)
[2020-03-16] MEDS: MAGNESIUM OXIDE 400 MG TABLET PO SCH (08:59)
[2020-03-16] MEDS: MULTIVITAMINS/MINERALS TABLET PO SCH (08:59)
[2020-03-16] MEDS: FERROUS SULFATE 325 MG TABLET PO SCH (08:59)
[2020-03-16] MEDS: JARDIANCE 10 MG HOMEMEDPO SCH (09:00)
[2020-03-16] MEDS: NS + 20MEQ KCL 1,000 ML IV SCH ×2 (10:00→16:35)
[2020-03-16 13:45] VITALS: BP 112/76
[2020-03-16 14:08] VITALS: BP 98/64
[2020-03-16] MEDS ORDERED: SODIUM CHLORIDE 0.9%, 500ML IVBOLUS ONE (14:30)
[2020-03-16 15:29] LABS: ALANINE AMINOTRANSFERASE 41 U/L (12-78); ALBUMIN 2.5 g/dL (3.4-5.0); ANION GAP 8 mmol/L (5-15); CALCIUM 9.4 mg/dL (8.5-10.1); CHLORIDE 104 mmol/L (98-107)
[2020-03-16 15:31] LABS: ALKALINE PHOSPHATASE 66 U/L (45-117); BILIRUBIN,TOTAL 0.7 mg/dL (0.2-1.0); TOTAL PROTEIN 7.2 g/dL (6.4-8.2)
[2020-03-16 15:47] LABS: BASOPHILS # (AUTO) 0.04 x10^3/uL (0-0.1); BASOPHILS % (AUTO) 1 % (0-1); EOSINOPHILS # (AUTO) 0.25 x10^3/uL (0-0.4); EOSINOPHILS % (AUTO) 3 % (1-7); LYMPHOCYTES # (AUTO) 1.61 x10^3/uL (1-3.4); LYMPHOCYTES % (AUTO) 19 % (22-44); MD NO; MEAN CORPUSCULAR HEMOGLOBIN 29.8 pg (27.0-34.8); MEAN CORPUSCULAR HGB CONC 32.4 g/dL (32.4-35.8); MEAN PLATELET VOLUME 9.7 fL (7.4-10.4); MONOCYTES # (AUTO) 0.71 x10^3/uL (0.2-0.8); MONOCYTES % (AUTO) 8 % (2-9); NEUTROPHILS # (AUTO) 5.86 x10^3/uL (1.8-6.8); NEUTROPHILS % (AUTO) 69 % (42-75); PLATELET COUNT 220 x10^3/uL (130-400); RED BLOOD COUNT 4.26 x10^6/uL (3.82-5.3); RED CELL DISTRIBUTION WIDTH 15.1 % (9.6-15.2)
[2020-03-16] MEDS: ENOXAPARIN 40 MG/0.4 ML SQ SCH (16:35)
[2020-03-16 16:39] VITALS: BP 118/64
[2020-03-16 17:19] LABS: MICROSCOPIC INDICATED
[2020-03-16 19:17] VITALS: BP 153/69
[2020-03-16] MEDS: ATORVASTATIN 80 MG TABLET PO SCH (22:08)
[2020-03-17 01:20] VITALS: BP 159/79
[2020-03-17] MEDS: NS + 20MEQ KCL 1,000 ML IV SCH ×2 (06:00→16:00)
[2020-03-17 06:15] LABS: CHLORIDE 106 mmol/L (98-107)
[2020-03-17 06:16] LABS: BASOPHILS # (AUTO) 0.02 x10^3/uL (0-0.1); BASOPHILS % (AUTO) 0 % (0-1); EOSINOPHILS # (AUTO) 0.25 x10^3/uL (0-0.4); EOSINOPHILS % (AUTO) 3 % (1-7); LYMPHOCYTES # (AUTO) 1.52 x10^3/uL (1-3.4); LYMPHOCYTES % (AUTO) 21 % (22-44); MD NO; MEAN CORPUSCULAR HGB CONC 32.7 g/dL (32.4-35.8); MEAN PLATELET VOLUME 9.4 fL (7.4-10.4); MONOCYTES # (AUTO) 0.72 x10^3/uL (0.2-0.8); MONOCYTES % (AUTO) 10 % (2-9); NEUTROPHILS # (AUTO) 4.69 x10^3/uL (1.8-6.8); NEUTROPHILS % (AUTO) 65 % (42-75); PLATELET COUNT 186 x10^3/uL (130-400); RED BLOOD COUNT 3.88 x10^6/uL (3.82-5.3); RED CELL DISTRIBUTION WIDTH 15.1 % (9.6-15.2)
[2020-03-17 06:20] LABS: ALANINE AMINOTRANSFERASE 30 U/L (12-78); ALBUMIN 2.2 g/dL (3.4-5.0); ALKALINE PHOSPHATASE 59 U/L (45-117); ANION GAP 8 mmol/L (5-15); BILIRUBIN,TOTAL 0.6 mg/dL (0.2-1.0); CALCIUM 8.7 mg/dL (8.5-10.1); TOTAL PROTEIN 6.4 g/dL (6.4-8.2)
[2020-03-17] MEDS: OMEPRAZOLE 20 MG CAPSULE.DR PO SCH (06:45)
[2020-03-17] MEDS: CYCLOBENZAPRINE 10 MG TABLET PO SCH ×3 (06:45→16:00)
[2020-03-17] MEDS: PROPRANOLOL 20 MG TABLET PO SCH (06:45)
[2020-03-17 07:38] VITALS: BP 183/90
[2020-03-17 09:57] LABS: TROPONIN I < 0.015 ng/mL (0.000-0.045)
[2020-03-17] MEDS: THIAMINE 100MG TABLET PO SCH (10:20)
[2020-03-17] MEDS: MULTIVITAMINS/MINERALS TABLET PO SCH (10:20)
[2020-03-17] MEDS: SENNA/DOCUSATE TABLET PO SCH (10:20)
[2020-03-17] MEDS: LINAGLIPTIN 5 MG TAB PO SCH (10:20)
[2020-03-17] MEDS: CYANOCOBALAMIN 1,000 MCG TABLET PO SCH (10:20)
[2020-03-17] MEDS: MAGNESIUM OXIDE 400 MG TABLET PO SCH (10:21)
[2020-03-17] MEDS: CHOLECALCIFEROL 1,000 UNIT TABLET PO SCH (10:21)
[2020-03-17] MEDS: FERROUS SULFATE 325 MG TABLET PO SCH (10:21)
[2020-03-17] MEDS: JARDIANCE 10 MG HOMEMEDPO SCH (10:23)
[2020-03-17 12:20] VITALS: BP 168/71
[2020-03-17] MEDS: ENOXAPARIN 40 MG/0.4 ML SQ SCH (16:10)
== END 2020-03-17 17:25 | disposition home or self-care (01) | DRG 459 ==
LOC: OUT 07:04 → 4NE 15:47 → OUT 20:36 → 4NE 20:37
PROVIDERS: ADMIT Neurological Surgery; ATTEND Neurological Surgery
PROC: 01NB0ZZ Release Lumbar Nerve, Open Approach (ICD-10-PCS; principal; 2020-03-12)
PROC: 01NR0ZZ Release Sacral Nerve, Open Approach (ICD-10-PCS; 2020-03-12)
PROC: 0SG0071 Fusion of Lumbar Vertebral Joint with Autologous Tissue Substitute, Posterior Approach, Posterior Column, Open Approach (ICD-10-PCS; 2020-03-12)
PROC: 8E0W0CZ Robotic Assisted Procedure of Trunk Region, Open Approach (ICD-10-PCS; 2020-03-12)
DX: M48.061 Spinal stenosis, lumbar region without neurogenic claudication (principal); N17.0 Acute kidney failure with tubular necrosis; J98.11 Atelectasis; E78.5 Hyperlipidemia, unspecified; I25.10 Atherosclerotic heart disease of native coronary artery without angina pectoris; R09.02 Hypoxemia; K21.9 Gastro-esophageal reflux disease without esophagitis; E11.9 Type 2 diabetes mellitus without complications; E86.0 Dehydration; R41.0 Disorientation, unspecified; Z98.1 Arthrodesis status; Z20.828 Contact with and (suspected) exposure to other viral communicable diseases; Z88.2 Allergy status to sulfonamides; Z82.49 Family history of ischemic heart disease and other diseases of the circulatory system; Z83.3 Family history of diabetes mellitus; Z87.891 Personal history of nicotine dependence; Z79.84 Long term (current) use of oral hypoglycemic drugs
CPT/HCPCS: 36415; 70551; 71045; 72100; 72131; 80048; 80053; 81001; 82140; 82962; 84145; 84443; 84484; 85025; 86850; 86900; 87086; 87106; 87635; C1713; G0378; J0690; J1100; J1650; J2270; J2405; J2704; J2710; J3010; J3370; J3480; C1762; J2370; J7030; J7040; Q0163

== ENCOUNTER → 2020-04-20 | Outpatient (CLI) | payer OTHER, MEDICARE ==
[~2020-04-20] MED LIST changes: -BACITRACIN 50,000 UNIT ONE; -BUPIVACAINE/PF-EPI 0.5% 1:200K ONE; -THROMBIN 5,000 UNIT VIAL TP ONE
== END | disposition home or self-care (01) ==
LOC: CFH 10:04
PROVIDERS: ATTEND Registered Nurse
DX: M51.17 Intervertebral disc disorders with radiculopathy, lumbosacral region (principal); M41.87 Other forms of scoliosis, lumbosacral region
CPT/HCPCS: 72100

== ENCOUNTER → 2020-08-05 | Outpatient (CLI) | payer MEDICARE, OTHER ==
[~2020-08-05] MED LIST changes: +AMLO-211 PO; -AMLO10TA8 PO; +OMNIPAQUE 350 MG/ML, 100ML BOTTLE ONE
== END | disposition home or self-care (01) ==
LOC: CFH 07:36
PROVIDERS: ATTEND Surgery
DX: K76.0 Fatty (change of) liver, not elsewhere classified (principal); K43.9 Ventral hernia without obstruction or gangrene; N28.1 Cyst of kidney, acquired; I10 Essential (primary) hypertension; E11.9 Type 2 diabetes mellitus without complications; N85.2 Hypertrophy of uterus; K50.10 Crohn's disease of large intestine without complications; K43.2 Incisional hernia without obstruction or gangrene
CPT/HCPCS: 74177; 82565; Q9967

== ENCOUNTER → 2020-11-17 | Outpatient (CLI) | payer MEDICARE ==
[~2020-11-17] MED LIST changes: +EMPA10TA PO; +HYDR-1067 PO; -HYDR-3240 PO; -LISI40TA PO; +LISI40TA9 PO; +METH-639 PO; -METH500T7 PO; -OMNIPAQUE 350 MG/ML, 100ML BOTTLE ONE; -OXYC-302 PO; +OXYC1TAB14 PO; +PROP20TA PO
[2020-11-17 10:40] LABS: ALANINE AMINOTRANSFERASE 51 U/L (12-78); ALBUMIN 3.7 g/dL (3.4-5.0); ANION GAP 1 mmol/L (5-15); CALCIUM 9.6 mg/dL (8.5-10.1); CHLORIDE 106 mmol/L (98-107); CREATININE 1.37 mg/dL (0.55-1.02)
[2020-11-17 10:42] LABS: ALKALINE PHOSPHATASE 95 U/L (45-117); BILIRUBIN,TOTAL 0.5 mg/dL (0.2-1.0); TOTAL PROTEIN 7.6 g/dL (6.4-8.2)
== END | disposition home or self-care (01) ==
LOC: STAR 09:09
PROVIDERS: ATTEND Surgery
DX: Z20.822 Contact with and (suspected) exposure to COVID-19 (principal); Z01.812 Encounter for preprocedural laboratory examination; I25.2 Old myocardial infarction; K43.2 Incisional hernia without obstruction or gangrene
CPT/HCPCS: 36415; 80053; 93005; U0003

== ENCOUNTER 2020-11-23 05:29 | Inpatient (IN) | payer MEDICARE ==
[~2020-11-23] VITALS: Ht 160 cm; Wt 88.2 kg
[~2020-11-23 05:29] MED LIST changes: -HYDR-1067 PO; +HYDR-2214 PO
[2020-11-23] MEDS ORDERED: CHLORHEXIDINE 15 ML UDC ONE (06:06)
[2020-11-23] MEDS: LACTATED RINGERS 1,000 ML IV SCH ×2 (06:27→11:36)
[2020-11-23 06:29] VITALS: BP 112/73
[2020-11-23] MEDS ORDERED: CHLORHEXIDINE 15 ML UDC PO ONE (06:30)
[2020-11-23] MEDS ORDERED: EPINEPHRINE 1 MG/ML, 1ML ONE (06:44)
[2020-11-23] MEDS ORDERED: BUPIVACAINE/PF 0.5% ONE (06:44)
[2020-11-23] MEDS ORDERED: FENTANYL PF 250 MCG/5ML ONE (07:24)
[2020-11-23] MEDS ORDERED: NEOSTIGMINE 1 MG/ML, 10ML ONE (07:27)
[2020-11-23] MEDS ORDERED: PROPOFOL 10 MG/ML, 20ML ONE (07:27)
[2020-11-23] MEDS ORDERED: CEFAZOLIN 1,000 MG ONE (07:27)
[2020-11-23] MEDS ORDERED: SUGAMMADEX 200 MG/2 ML IVPush ONE (07:27)
[2020-11-23] MEDS ORDERED: ONDANSETRON 2MG/ML, 2ML ONE (07:27)
[2020-11-23] MEDS ORDERED: ROCURONIUM 10 MG/ML,10ML ONE (07:27)
[2020-11-23] MEDS ORDERED: GLYCOPYRROLATE 0.2MG/1ML, 5ML ONE (07:27)
[2020-11-23] MEDS ORDERED: EPHEDRINE 50 MG/ML, 1ML ONE ×2 (07:27→09:16)
[2020-11-23] MEDS ORDERED: DEXAMETHASONE 4 MG/ML, 1ML ONE (07:27)
[2020-11-23] MEDS ORDERED: OXYC5TAB2 PO (08:53)
[2020-11-23] MEDS ORDERED: NALOXONE 0.4 MG/ML, 1ML ONE (09:13)
[2020-11-23] MEDS ORDERED: NALOXONE 0.4 MG/ML, 1ML IVPush ONE ×3 (09:30→11:00)
[2020-11-23] MEDS ORDERED: ALBUTEROL SULFATE 2.5 MG/3 ML ONE (09:48)
[2020-11-23] MEDS ORDERED: FENTANYL PF 100 MCG/2ML ONE ×2 (09:56→10:01)
[2020-11-23] MEDS ORDERED: MIDAZOLAM 1 MG/ML, 2ML ONE ×2 (09:56→10:01)
[2020-11-23] MEDS ORDERED: FENTANYL PF 100 MCG/2ML IV PRN (10:00)
[2020-11-23] MEDS ORDERED: MIDAZOLAM 1 MG/ML, 2ML IVPush ONE (10:00)
[2020-11-23] MEDS ORDERED: SUCCINYLCHOLINE 20 MG/ML, 10ML ONE (10:08)
[2020-11-23] MEDS ORDERED: OMNIPAQUE 350 MG/ML, 75ML BOTTLE ONE (10:29)
[2020-11-23] MEDS ORDERED: DIPHENHYDRAMINE 50 MG/ML, 1ML IVPush ONE (10:41)
[2020-11-23] MEDS ORDERED: FAMOTIDINE 20 MG/2 ML ONE (10:56)
[2020-11-23] MEDS ORDERED: GLUCAGON 1 MG IM PRN (11:00)
[2020-11-23] MEDS ORDERED: LIDOCAINE-MPF 1%, 2ML ENDO PRN (11:00)
[2020-11-23] MEDS ORDERED: MIDAZOLAM 1 MG/ML, 2ML IVPush PRN ×2 (11:00)
[2020-11-23] MEDS ORDERED: DEXTROSE 50%, 50ML SYRINGE IVPush PRN (11:00)
[2020-11-23] MEDS ORDERED: ACETAMINOPHEN 650 MG/20.3 ML UDC PO/NG PRN (11:00)
[2020-11-23] MEDS ORDERED: PHARMACY MAY ADJ FOR RENAL FX MC SCH (11:00)
[2020-11-23] MEDS ORDERED: FENTANYL PF 100 MCG/2ML IVPush PRN (11:00)
[2020-11-23] MEDS ORDERED: DEXTROSE 4 GM TAB.CHEW PO PRN (11:00)
[2020-11-23] MEDS: SODIUM CHLORIDE 0.9% 1,000 ML IV SCH ×2 (11:07→19:18)
[2020-11-23] MEDS: DEXAMETHASONE 4 MG/ML, 1ML IVPush SCH ×3 (11:07→23:08)
[2020-11-23] MEDS ORDERED: ENOXAPARIN 40 MG/0.4 ML SQ SCH (11:30)
[2020-11-23 11:41] LABS: TROPONIN I < 0.015 ng/mL (0.000-0.045)
[2020-11-23] MEDS: INSULIN LISPRO 100 UNITS/ML, PEN SQ-INSULIN SCH ×3 (11:50→22:50)
[2020-11-23] MEDS: SODIUM CHLORIDE FLUSH 10ML SYR IVF SCH ×2 (11:51→20:06)
[2020-11-23] MEDS: AMPICILLIN/SULBACTAM 3 GM in SODIUM CHLORIDE 0.9% 100 ML IV SCH ×2 (11:51→23:10)
[2020-11-23] MEDS ORDERED: FAMOTIDINE 20 MG/2 ML IV SCH (12:00)
[2020-11-23 12:31] LABS: CHLORIDE 106 mmol/L (98-107)
[2020-11-23 12:48] LABS: ANION GAP 10 mmol/L (5-15); CALCIUM 8.6 mg/dL (8.5-10.1); CREATININE 1.94 mg/dL (0.55-1.02)
[2020-11-23 13:04] LABS: BASOPHILS % (AUTO) 0 % (0-1); EOSINOPHILS % (AUTO) 0 % (1-7); LYMPHOCYTES % (AUTO) 10 % (22-44); MEAN CORPUSCULAR HEMOGLOBIN 30.2 pg (27.0-34.8); MEAN CORPUSCULAR HGB CONC 32.5 g/dL (32.4-35.8); MEAN PLATELET VOLUME 9.8 fL (7.4-10.4); MONOCYTES % (AUTO) 3 % (2-9); NEUTROPHILS % (AUTO) 87 % (42-75); PLATELET COUNT 181 x10^3/uL (130-400); RED CELL DISTRIBUTION WIDTH 15.1 % (9.6-15.2)
[2020-11-23] MEDS ORDERED: SODIUM CHLORIDE 0.9% 1,000ML IVBOLUS ONE ×2 (14:00→18:00)
[2020-11-23 14:02] LABS: MD SCAN
[2020-11-23] MEDS: DIPHENHYDRAMINE 50 MG/ML, 1ML IVPush SCH ×2 (16:11→21:15)
[2020-11-23] MEDS: PROPOFOL 100 ML IV PRN ×2 (16:13→23:08)
[2020-11-23 16:19] LABS: TROPONIN I 0.422 ng/mL (0.000-0.045)
[2020-11-23] MEDS: OXYcodone 5 MG/5 ML ORAL.SOL UDC PO PRN (20:06)
[2020-11-24] MEDS: SODIUM CHLORIDE 0.9% 1,000 ML IV SCH (03:26)
[2020-11-24] MEDS: DIPHENHYDRAMINE 50 MG/ML, 1ML IVPush SCH ×4 (03:26→21:52)
[2020-11-24 04:43] LABS: BASOPHILS % (AUTO) 0 % (0-1); EOSINOPHILS % (AUTO) 0 % (1-7); LYMPHOCYTES % (AUTO) 10 % (22-44); MEAN CORPUSCULAR HEMOGLOBIN 30.1 pg (27.0-34.8); MEAN CORPUSCULAR HGB CONC 33.4 g/dL (32.4-35.8); MEAN PLATELET VOLUME 10.2 fL (7.4-10.4); MONOCYTES % (AUTO) 3 % (2-9); NEUTROPHILS % (AUTO) 87 % (42-75); PLATELET COUNT 154 x10^3/uL (130-400); RED BLOOD COUNT 5.25 x10^6/uL (3.82-5.3); RED CELL DISTRIBUTION WIDTH 15.3 % (9.6-15.2)
[2020-11-24 04:53] LABS: ANION GAP 7 mmol/L (5-15); CALCIUM 7.9 mg/dL (8.5-10.1); CHLORIDE 115 mmol/L (98-107); CREATININE 1.97 mg/dL (0.55-1.02); MD NO
[2020-11-24] MEDS: DEXAMETHASONE 4 MG/ML, 1ML IVPush SCH (05:17)
[2020-11-24] MEDS: INSULIN LISPRO 100 UNITS/ML, PEN SQ-INSULIN SCH ×4 (08:20→22:17)
[2020-11-24] MEDS ORDERED: MAGNESIUM SULFATE PMX 2GM/50ML 50 ML IV ONE (09:00)
[2020-11-24] MEDS: SODIUM CHLORIDE FLUSH 10ML SYR IVF SCH ×4 (09:47→22:18)
[2020-11-24] MEDS: ENOXAPARIN 30 MG/0.3 ML SQ SCH (12:08)
[2020-11-24] MEDS: FAMOTIDINE 20 MG/2 ML IV SCH (12:12)
[2020-11-24 17:29] VITALS: BP 137/82
[2020-11-24] MEDS: PROPRANOLOL 20 MG TABLET PO SCH (18:28)
[2020-11-24 19:42] VITALS: BP 144/68
[2020-11-24] MEDS: ATORVASTATIN 80 MG TABLET PO SCH (21:52)
[2020-11-24] MEDS: OXYcodone 5 MG/5 ML ORAL.SOL UDC PO PRN (22:17)
[2020-11-25 02:39] VITALS: BP 132/65
[2020-11-25] MEDS: DIPHENHYDRAMINE 50 MG/ML, 1ML IVPush SCH ×4 (03:14→22:00)
[2020-11-25 05:07] LABS: BASOPHILS % (AUTO) 0 % (0-1); EOSINOPHILS % (AUTO) 0 % (1-7); LYMPHOCYTES % (AUTO) 15 % (22-44); MEAN CORPUSCULAR HEMOGLOBIN 29.7 pg (27.0-34.8); MEAN CORPUSCULAR HGB CONC 32.1 g/dL (32.4-35.8); MEAN PLATELET VOLUME 10.7 fL (7.4-10.4); MONOCYTES % (AUTO) 10 % (2-9); NEUTROPHILS % (AUTO) 74 % (42-75); PLATELET COUNT 159 x10^3/uL (130-400); RED BLOOD COUNT 4.18 x10^6/uL (3.82-5.3); RED CELL DISTRIBUTION WIDTH 15.8 % (9.6-15.2)
[2020-11-25 05:14] LABS: ANION GAP 7 mmol/L (5-15); CALCIUM 8.3 mg/dL (8.5-10.1); CHLORIDE 111 mmol/L (98-107)
[2020-11-25 05:16] LABS: CREATININE 2.09 mg/dL (0.55-1.02)
[2020-11-25 05:18] LABS: MD NO
[2020-11-25] MEDS: PROPRANOLOL 20 MG TABLET PO SCH ×2 (06:42→17:13)
[2020-11-25] MEDS: INSULIN LISPRO 100 UNITS/ML, PEN SQ-INSULIN SCH ×4 (06:51→22:15)
[2020-11-25 07:06] VITALS: BP 149/88
[2020-11-25] MEDS: SODIUM CHLORIDE FLUSH 10ML SYR IVF SCH ×4 (08:21→22:00)
[2020-11-25] MEDS: ENOXAPARIN 30 MG/0.3 ML SQ SCH (10:57)
[2020-11-25] MEDS: FAMOTIDINE 20 MG/2 ML IV SCH (11:34)
[2020-11-25 13:29] VITALS: BP 135/79
[2020-11-25 19:29] VITALS: BP 170/83
[2020-11-25] MEDS: ATORVASTATIN 80 MG TABLET PO SCH (22:00)
[2020-11-25 22:12] VITALS: BP 160/77
[2020-11-25] MEDS: OXYcodone 5 MG/5 ML ORAL.SOL UDC PO PRN (22:14)
[2020-11-26 01:57] VITALS: BP 178/84
[2020-11-26 03:32] VITALS: BP 144/81
[2020-11-26] MEDS: DIPHENHYDRAMINE 50 MG/ML, 1ML IVPush SCH ×3 (03:36→14:38)
[2020-11-26] MEDS: OXYcodone 5 MG/5 ML ORAL.SOL UDC PO PRN ×2 (03:52→14:06)
[2020-11-26 05:07] LABS: BASOPHILS % (AUTO) 0 % (0-1); EOSINOPHILS % (AUTO) 1 % (1-7); LYMPHOCYTES % (AUTO) 20 % (22-44); MEAN CORPUSCULAR HEMOGLOBIN 30.2 pg (27.0-34.8); MEAN CORPUSCULAR HGB CONC 32.9 g/dL (32.4-35.8); MEAN PLATELET VOLUME 10.6 fL (7.4-10.4); MONOCYTES % (AUTO) 9 % (2-9); NEUTROPHILS % (AUTO) 70 % (42-75); PLATELET COUNT 132 x10^3/uL (130-400); RED BLOOD COUNT 3.73 x10^6/uL (3.82-5.3); RED CELL DISTRIBUTION WIDTH 15.3 % (9.6-15.2)
[2020-11-26 05:11] LABS: CHLORIDE 111 mmol/L (98-107)
[2020-11-26 05:12] LABS: MD NO
[2020-11-26 05:17] LABS: ANION GAP 6 mmol/L (5-15); CALCIUM 8.6 mg/dL (8.5-10.1); CREATININE 1.75 mg/dL (0.55-1.02); TRIGLYCERIDES 261 mg/dL (50-200)
[2020-11-26] MEDS: PROPRANOLOL 20 MG TABLET PO SCH ×2 (06:38→17:13)
[2020-11-26 06:50] VITALS: BP 187/95
[2020-11-26 07:28] VITALS: BP 165/78
[2020-11-26] MEDS: INSULIN LISPRO 100 UNITS/ML, PEN SQ-INSULIN SCH ×3 (07:29→16:05)
[2020-11-26] MEDS: SODIUM CHLORIDE FLUSH 10ML SYR IVF SCH ×2 (08:18)
[2020-11-26] MEDS ORDERED: FAMOTIDINE 20 MG TABLET PO SCH (09:00)
[2020-11-26] MEDS: ENOXAPARIN 30 MG/0.3 ML SQ SCH (11:01)
[2020-11-26] MEDS ORDERED: MAGNESIUM HYDROXIDE 8%, 30ML UDC PO SCH (21:00)
== END 2020-11-26 17:57 | disposition home or self-care (01) | DRG 353 ==
LOC: OUT 05:29 → CCU 10:33 → 4NE 11-24 17:16
PROVIDERS: ADMIT Surgery; ATTEND Surgery
PROC: 5A1935Z Respiratory Ventilation, Less than 24 Consecutive Hours (ICD-10-PCS; 2020-11-23)
PROC: 0BH17EZ Insertion of Endotracheal Airway into Trachea, Via Natural or Artificial Opening (ICD-10-PCS; 2020-11-23)
PROC: 8E0W4CZ Robotic Assisted Procedure of Trunk Region, Percutaneous Endoscopic Approach (ICD-10-PCS; 2020-11-23)
PROC: 0WUF4JZ Supplement Abdominal Wall with Synthetic Substitute, Percutaneous Endoscopic Approach (ICD-10-PCS; principal; 2020-11-23 07:30)
DX: K43.2 Incisional hernia without obstruction or gangrene (principal); J96.01 Acute respiratory failure with hypoxia; J98.11 Atelectasis; E11.9 Type 2 diabetes mellitus without complications; E66.9 Obesity, unspecified; Z68.34 Body mass index [BMI] 34.0-34.9, adult; I10 Essential (primary) hypertension; E78.5 Hyperlipidemia, unspecified; I25.10 Atherosclerotic heart disease of native coronary artery without angina pectoris; K21.9 Gastro-esophageal reflux disease without esophagitis; Z86.74 Personal history of sudden cardiac arrest; Z87.891 Personal history of nicotine dependence; Z90.49 Acquired absence of other specified parts of digestive tract; Z95.5 Presence of coronary angioplasty implant and graft; Z88.2 Allergy status to sulfonamides
CPT/HCPCS: 36415; 36600; 71045; 71275; 80048; 82533; 82803; 82962; 83605; 83735; 84132; 84478; 84484; 85025; 87070; 87081; 87205; 88302; 93005; 93312; 93325; 94002; 94003; 94150; G0378; J0171; J0295; J0690; J1100; J1650; J2250; J2310; J2405; J2704; J2710; J3010; Q9967; C1781; J0330; J1200; J1815; J3475; J7030; J7120

== ENCOUNTER → 2021-03-17 | Outpatient (CLI) | payer MEDICARE ==
[~2021-03-17] MED LIST changes: +OXYC5TAB2 PO
== END | disposition home or self-care (01) ==
LOC: RAD 10:00 → EDSTATUS 10:30
PROVIDERS: ATTEND Surgery
DX: L76.34 Postprocedural seroma of skin and subcutaneous tissue following other procedure (principal)
CPT/HCPCS: 76705